=== PATIENT | male | born 1940 | race Caucasian/White ===

== ENCOUNTER → 2017-10-24 08:17 | Outpatient (CLI) | payer MEDICARE, SELFPAY ==
--- NOTE | 2017-10-24 08:40 | RAD_ITS ---
STUDY: X-RAY - RIGHT SHOULDER REASON FOR EXAM: Male, 77 years old. Pain, arthritis, no known injury TECHNIQUE: 2 view(s) of the shoulder. COMPARISON: None. FINDINGS: There is mild degenerative arthrosis of the glenohumeral articulation. There is hypertrophic osteoarthrosis of the acromioclavicular joint with inferior osseous spur formation. Normal acromion. Normal humeral head and visualized proximal humerus. The soft tissue structures are unremarkable. There is no demonstrated fracture. Normal visualized pulmonary apex. RAD/Shoulder min 2 Views IMPRESSION: Degenerative changes as detailed above. Electronically Signed: Jose Singh MD at 18:45 EDT , Service support ,
== END ==
PROVIDERS: Visit Provider Anesthesiology Pain Medicine
DX: M25.519 Pain in unspecified shoulder (principal)
CPT/HCPCS: 73030

== ENCOUNTER 2018-04-19 09:00 | Outpatient (RCR) | payer MEDICARE, SELFPAY ==
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
--- NOTE | 2018-04-19 09:38 | HP.PTDCSUM_ITS ---
HP - PT D/C Summary It has been my pleasure to treat GONZALEZ SMART under orders from Bertrand Lewis MD, for the diagnosis of CLOSED WEDGE COMPRESSION FX OF L1 W/ ROUTINE HEALING for a total of 8 visit(s). Discharge Date: 04/19/18 Please see the following information for a summary of their discharge status. - Subjective Subjective: PATIENT REPORTS HE IS A LOT BETTER. HE REPORTS HE SAW DR. SAN YESTERDAY AND DR. SAN ORDERED A HOME TENS UNIT FOR HIM. PATIENT REPORTS HE CAN WORK ABOUT 10 MINUTES ON HIS FEET THEN HE HAS TO SIT DOWN. PATIENT REPORTS HE HAS ENOUGH EXERCISES AND DOESN'T WANT ANY MORE RIGHT NOW. - Pain LOW BACK Pain Intensity (Out of 10): 5 RLE Pain Intensity (Out of 10): 5 LLE Pain Intensity (Out of 10): 5 - Overall Improvement % Improvement: 100 - Objective Objective/Function: ALL GOALS MET. PATIENT IS INDEP WITH HEP AND REPORTS HIS PAIN IS BACK TO PRE-ACCIDENT LEVEL AND HIS ACTIVITY LEVEL IS BACK TO PRE- ACCIDENT LEVEL TOO. UPON PATIENT DEMO'S IMPROVED BALANCE AND CADANCE WITH GAIT BUT STILL UNABLE TO ONLY SLS ON EACH LEG FOR A FEW SECONDS AND THIS PT STILL RECOMMENDS A WALKER FOR SAFETY BUT PATIENT REFUSES. HE IS ABLE TO TRANSFER FROM SIT TO STAND WITH ONE UE VS TWO NOW AND LUMBAR FLEX ROM HAS IMPROVED WITH ONLY MINIMAL LOSS NOW WITHOUT C/O INCREASED PAIN. HE CONTINUES TO STAND AND WALK WITH EXCESSIVE TRUNK FLEXION BUT ABLE TO CORRECT CLOSER TO NEUTRAL WITH LESS PAIN. TRISH LE STRENGTH IS 5/5 EXCEPT HIPS GRADED 4/5 AND CORE STRENGTH REMAINS POOR. PATIENT ONLY HAS MILD LOW BACK TENDERNESS NOW. - Goals Goal 1:: DECREASE C/O BACK AND TRISH LE SX'S. Goal 2:: IMPROVE STANDING, WALKING, ADL, AND SLEEP FUNCTION Goal 3:: INSTRUCT IN PROPHYLAXIS - Plan Plan: D/C. PATIENT AGREEABLE. - D/C Information If there are questions or concerns regarding this patient's physical therapy, please feel free to call me at [phone]. Thank you for the referral of this patient. Sincerely, Erica Gonzales
== END 2018-04-19 18:11 | disposition home or self-care (01) ==
LOC: PT 09:00
PROVIDERS: Referring Provider Orthopaedic Surgery Orthopaedic Surgery of the Spine; Visit Provider Orthopaedic Surgery Orthopaedic Surgery of the Spine
DX: S32.010D Wedge compression fracture of first lumbar vertebra, subsequent encounter for fracture with routine healing (principal)
CPT/HCPCS: 97035; 97110; 97162; 97530

== ENCOUNTER → 2018-10-23 09:04 | Outpatient (CLI) | payer MEDICARE, SELFPAY ==
[2014-07-09 22:16] VITALS: BMI 38.0
[2018-10-23 10:10] LABS: Amphetamine Urine VISTA NEGATIVE (<1000 ng/mL); Barbiturate Urine VISTA NEGATIVE (< 200 ng/mL); Benzodiazepine Urine VISTA NEGATIVE (< 200 ng/mL); Cocaine Urine VISTA NEGATIVE (< 300 ng/mL); Ecstacy Urine VISTA NEGATIVE (< 500 ng/mL); Methadone Urine VISTA NEGATIVE (< 300 ng/mL); PCP Urine VISTA NEGATIVE (< 25 ng/mL); THC Urine VISTA NEGATIVE (< 50 ng/mL)
[2018-10-23 10:44] LABS: Vista UDS pH Range 5
== END ==
PROVIDERS: Referring Provider Anesthesiology Pain Medicine; Visit Provider Anesthesiology Pain Medicine
DX: F11.20 Opioid dependence, uncomplicated (principal)
CPT/HCPCS: 80307

== ENCOUNTER 2019-01-02 11:14 | Inpatient (IN) | payer MEDICARE, SELFPAY ==
[2019-01-02] VITALS (23 sets, daily range): BP systolic 106–159; BP diastolic 54–138; PULSE 71–107; RESP 17–31; TEMP 36.6–37.1; O2SAT 94–100; BMI 31.4; BMI 30.7
--- NOTE | 2019-01-02 11:26 | EKG12_ITS ---
Test Reason : POST OP Blood Pressure : / mmHG Vent. Rate : 078 BPM Atrial Rate : 078 BPM P-R Int : 160 ms QRS Dur : 072 ms QT Int : 436 ms P-R-T Axes : 054 028 041 degrees QTc Int : 497 ms Sinus rhythm with Premature atrial complexes Prolonged QT Abnormal ECG When compared with ECG of 02-JAN-2019 11:41, MANUAL COMPARISON REQUIRED, DATA IS UNCONFIRMED Confirmed by JOEL DESAI ([id number]), editor publications PARESH PEREIRA ([id number]) on 01/05/2019 8:48:50 AM Referred By: Ricardo Jonas Confirmed By:JOEL DESAI
--- NOTE | 2019-01-02 11:26 | CT_ITS ---
STUDY: CT BRAIN WITHOUT CONTRAST REASON FOR EXAM: Male, 78 years old. Headache after a fall RADIATION DOSAGE (If Supplied By Facility): CTDIvol = ( 44.99 ) mGy, DLP = ( 745.49 ) mGycm TECHNIQUE: Transaxial CT imaging of the brain was performed without administration of intravenous contrast material. Individualized dose optimization techniques were used for this CT. COMPARISON: No relevant priors. FINDINGS: Normal soft tissue structures. Normal calvarium. There is mild cerebral atrophy with widening of the extra-axial spaces and ventricular dilatation. There are areas of decreased attenuation within the white matter tracts of the supratentorial brain, consistent with microvascular disease changes. Normal basal ganglia and thalami. Normal brainstem. Normal cerebellum. There is no intracranial hemorrhage. There are no findings of an acute ischemic infarction. Normal visualized paranasal sinuses. CT/Brain/Head without Contrast IMPRESSION: Chronic involutional changes of the brain. Electronically Signed: Marcos Madrid MD at 12:22 EDT , Service support ,
--- NOTE | 2019-01-02 11:27 | CT_ITS ---
STUDY: CT CERVICAL SPINE WITHOUT CONTRAST REASON FOR EXAM: Male, 78 years old. Neck pain after a fall RADIATION DOSAGE (If Supplied By Facility): CTDIvol = ( 28.74 ) mGy, DLP = ( 608.33 ) mGycm TECHNIQUE: High resolution transaxial imaging was performed without contrast material. Sagittal and coronal images were reconstructed. Individualized dose optimization techniques were used for this CT. COMPARISON: None FINDINGS: Normal craniovertebral junction. There are degenerative changes of the anterior atlantoaxial articulation. Normal odontoid process. Normal cervical lordosis. Sclerotic endplate changes noted throughout the cervical spine. There is anatomic alignment of the cervical spine. No demonstrated fracture. Intervertebral disc space narrowing noted throughout the cervical spine, most pronounced at C3-4 with there are prominent posterior spurs. No central canal stenosis but there is foraminal narrowing at this level. Normal visualized soft tissue structures. No upper rib fracture or pneumothorax. CT/Spine Cervical without Contras IMPRESSION: Multilevel degenerative changes, as described above. Findings most pronounced at C3-4. No fracture or suspicious osseous lesion Electronically Signed: Marcos Madrid MD at 12:23 EDT , Service support ,
--- NOTE | 2019-01-02 11:27 | RAD_ITS ---
STUDY: X-RAY - LEFT HAND REASON FOR EXAM: Male, 78 years old. Pain after a fall TECHNIQUE: 3 view(s) of the hand. COMPARISON: None. FINDINGS: Bones are demineralized. No demonstrated fracture. Degenerative arthrosis noted at all visualized joint spaces, most notably at the base of the thumb where there is also subluxation of the first CMC joint. No suspicious soft tissue swelling or foreign body. RAD/Hand Min 3 Views IMPRESSION: Demineralization of the osseous structures with polyarticular arthrosis, most notably at the base of the thumb. No demonstrated fracture or suspicious osseous lesion Electronically Signed: Marcos Madrid MD at 12:43 EDT , Service support ,
--- NOTE | 2019-01-02 11:27 | RAD_ITS ---
STUDY: X-RAY - LEFT RADIUS AND ULNA REASON FOR EXAM: Male, 78 years old. Pain after fall TECHNIQUE: 4 view(s) of the forearm. COMPARISON: None. FINDINGS: There is no demonstrated soft tissue swelling. Normal visualized radius. Normal visualized ulna. RAD/Forearm 2 Views IMPRESSION: Normal x-ray examination of the radius and ulna. Electronically Signed: Marcos Madrid MD at 12:44 EDT , Service support ,
[2019-01-02 11:38] LABS: Absolute Neutrophil Count 21.3 X10^3/uL (2.0-7.7); Basophil# 0.04 X10^3/uL; Basophil% 0.2 % (0-1); Eosinophil# 0.06 X10^3/uL; Eosinophils% 0.3 % (0-5); Hematocrit 42.4 % (40-54); Hemoglobin 14.6 g/dL (13.0-16.5); Lymphocyte % 3.8 % (19-41); Mean Corp Hgb Conc 34.4 g/dL (32-36); Mean Corpuscular Hgb 33.6 pg (27.0-32.0); Mean Corpuscular Volume 97.5 fL (80-94); Mean Platelet Vol. 10.9 fl (6.2-12.0); Monocyte# 1.19 X10^3/uL; NRBC Flagged by Analyzer 0 % (0-5); Neutrophil % 89.4 % (47-70); POSITIVE DIFFERENTIAL YES; Platelet Count 252 K/mm3 (150-450); RBC Distribution Width CV 11.6 % (11.6-14.6); RBC Distribution Width SD 42.1 fl (35.1-43.9); Red Blood Count 4.35 M/mm3 (4.6-6.2); White Blood Count 23.8 K/mm3 (4.4-11.0)
[2019-01-02] MEDS: Ondansetron 4 MG/2 ML Vial IV (11:39)
[2019-01-02] MEDS: 0.9% Normal Saline 1,000 ML 1000 ML IV (11:39)
[2019-01-02] MEDS: Morphine 2 MG/ML Syringe IV (11:39)
[2019-01-02 11:43] LABS: Differential Indicated SCAN CRITERIA MET
[2019-01-02 11:53] LABS: ALB/GLOB Ratio 0.6 RATIO (0.9-2.4); AST(SGOT) 642 U/L (15-37); Alanine Aminotransfer ALT/SGPT 108 U/L (16-61); Albumin, Serum 2.7 g/dL (3.2-5.0); Alkaline Phosphatase 101 U/L (45-117); Anion Gap 16 (5-15); BUN 32 mg/dL (7-18); BUN/Creat Ratio 12.1 RATIO (10-20); Calcium,Total 8.9 mg/dL (8.5-10.1); Chloride 103 mmol/L (98-107); Creatinine, Serum 2.65 mg/dL (0.70-1.30); EST Glomerular Filtration Rate 25 mL/min (>60); Est Glom Filt Rate - Afr Amer 30 mL/min (>60); Estimated Creatinine Clearance 25.96 ml/min; Globulin 4.5 g/dL (2.2-4.2); Glucose 164 mg/dL (74-106); Potassium 4.5 mmol/L (3.5-5.1); Protein, Total 7.2 g/dL (6.4-8.2); Sodium Level 137 mmol/L (136-145)
--- NOTE | 2019-01-02 12:05 | RAD_ITS ---
STUDY: X-RAY CHEST REASON FOR EXAM: Male, 78 years old. Chest pain and cough after a fall TECHNIQUE: Single AP portable view of the chest. COMPARISON: 07/10/14 FINDINGS: EKG leads overlie the chest There are interstitial fibrotic changes of the lungs. There is no demonstrated pleural abnormality. Normal size heart. Normal mediastinum and cl. Normal visualized pulmonary arteries. Normal visualized aortic arch and descending thoracic aorta. There are diffuse degenerative changes of the visualized thoracic spine. Normal visualized ribs, clavicles, and shoulders. There is no demonstrated abnormality of the visualized soft tissue structures of the upper abdomen. RAD/Chest 1 View (Portable) IMPRESSION: Degenerative changes, as described above. No demonstrated acute cardiopulmonary process. No interval change Electronically Signed: Marcos Madrid MD at 12:44 EDT , Service support ,
[2019-01-02 12:35] LABS: Lactic Acid 5.3 mmol/L (0.4-2.0)
[2019-01-02] MEDS: Diphth,Pertuss(Acell),Tet Vac 0.5 ML Vial IM (12:37)
[2019-01-02] MEDS: Morphine 4 MG/ML Syringe IV ×4 (12:43→21:41)
[2019-01-02 13:00] LABS: CPK Total, Creatine Kinase 22797 U/L (39-308)
--- NOTE | 2019-01-02 13:07 | ED.VISSUMM ---
- ER Visit Summary Date of Service: 01/02/19 Chief Complaint: [Fall History of Present Illness: The patient is a 78 M [presents to the emergency department after sustaining a fall last evening around 8:30 PM. Patient states that he was turning over a mattress when he fell between the bed and the dresser and no wall. Patient could not get up and laid there for over 12 hours. Patient's who does not live with him came over when she did not hear from him this morning and found him. Patient complaining of pain in his neck and his left arm. Is unsure of his last tetanus. Denies any chest pain or abdominal pain. Patient denies drinking alcohol last night although his does not believe this. I am told by the the patient has history of alcohol abuse. Patient also with history of hypertension, high cholesterol, hypothyroidism, and osteoarthritis.] Physical Examination: [HEENT-PERRLA, EOMI. Cranial nerves II through XII grossly intact. TMs clear. Mucous membranes moist. No adenopathy. She has mild diffuse C-spine tenderness to palpation. No bony step-offs noted. Cardiovascular-regular rate and rhythm without murmur or ectopy Lungs-clear to auscultation, chest wall stable without crepitus or subcu emphysema Abdomen-normoactive bowel sounds, soft, nontender, no rebound or rigidity, no peritoneal signs. Extremities-intact ?4, normal range of motion, normal pulses. Left arm-patient has diffuse edema from the elbow down to the hand. Patient has multiple skin abrasions. Patient has multiple blisters. Cap refill is 3 seconds in the hand. Patient has decreased ability to the move the wrist and digits secondary to edema and pain. Patient has normal ulnar and radial pulses. Forearm compartments are not tight.] Test Results: [CT scan of the brain without contrast showed nothing acute. CT scan of the C-spine showed degenerative changes but no fractures. X-rays of left forearm and left hand showed no fractures. Chest x-ray showed nothing acute. CBC with differential to 23.8, hemoglobin 14.6, hematocrit 42, platelets 252. Chemistries unremarkable. The O2 was 16. BUN was 22 and creatinine 2.65. Troponin was 0.058. CPK was 22,797.] Emergency Department Course and Treatment: [Was treated with morphine and Zofran. Patient was given a liter normal same fluid bolus.] Receive tetanus booster. Treatment Plan: [Admit for IV hydration and pain management.] Disposition: [Admit] Impression: [Mechanical fall Rhabdomyolysis Acute kidney injury Left forearm skin tears] This note was generated with 7write dictation software. It may contain incorrect words, spelling, and punctuation that were not noted in review of the chart prior to signing ED Disposition - Plan for ED Patient: Referrals: [facility] Doctor,Out of [Primary Care Provider] -
--- NOTE | 2019-01-02 13:47 | PCM.HP.STD ---
Problem List (1) SAVANNAH (acute kidney injury) Status: Acute (2) Rhabdomyolysis Status: Acute (3) Fall Status: Acute (4) Esophageal stricture Status: Chronic (5) GERD (gastroesophageal reflux disease) Status: Chronic (6) Hyperlipidemia Status: Chronic (7) Hypertension Status: Chronic (8) Hypothyroid Status: Chronic (9) Osteoarthritis Status: Chronic History of Present Illness Date of Admission: 01/02/19 Chief Complaint: Fall The patient is a 78 year old M who was brought to the emergency department by the following a fall. Patient states he fell in his bedroom and was stuck in between the wall and his bed. He laid down for over 12 hours. Patient and apparently lives in separate rooms and could not find patient went to the room and found patient between the bed and the wall. The EMS squad was called and patient was brought to the emergency department. Patient apparently did develop significant swelling involving the left upper extremities. In the ED patient was found to have acute kidney injury with rhabdomyolysis. He was also found to have elevated lactic acid level and leukocytosis without any obvious source of infection. Past Medical History Past Medical History (Chronic Problems): Chronic Problems Hypertension (Chronic) Esophageal stricture (Chronic) GERD (gastroesophageal reflux disease) (Chronic) Osteoarthritis (Chronic) Hypothyroid (Chronic) Hyperlipidemia (Chronic) Allergies rosuvastatin calcium [From Crestor] Allergy (Verified 01/02/19 11:14) Other niacin [From Niaspan Extended-Release] Adverse Reaction (Verified 01/02/19 11:14) Unknown Home Medications: Ambulatory Orders Medication Instructions Recorded Cyanocobalamin (Vitamin B-12) 1,000 mcg PO DAILY 01/02/19 [Vitamin B-12] Gabapentin [Neurontin] 100 mg PO QHS 01/02/19 Levothyroxine Sodium 125 mcg PO DAILY 01/02/19 Lisinopril 40 mg PO DAILY 01/02/19 Loratadine 10 mg PO DAILY 01/02/19 Omeprazole 40 mg PO DAILY 01/02/19 Surgical History: - - Cholecystectomy, Esophageal stricture dilation/foreign body removal. Smoking Status: Never smoker - *Family History Maternal History Items: Diabetes Paternal History Items: No pertinent history Review of Systems Constitutional: Reports: Weakness HEENT: Denies: Head Aches, Sinus Congestion, Sinus Drainage Cardiovascular: Denies: Chest Pain, Orthopnea, Palpitations, Paroxysmal Noc. Dyspnea Respiratory: Denies: Cough, Shortness of breath at rest, Shortness of breath upon exertion, Sputum production Gastrointestinal: Denies: Abdominal Pain, Hematemesis, Hematochezia, Nausea, Melena, Vomiting Musculoskeletal: Reports: Arm Pain, Joint stiffness Neurological: Reports: Numbness Psychiatric: Denies: Homicidal Ideations, Suicidal Ideations Hematologic/ Lymphatic: Denies: Easy Bruising, Easy Bleeding VTE Information - Inpt Only VTE Present on Admission: No VTE Mechan Device Prophylaxis: Knee High JAREK Hose VTE Pharm Prophylaxis ordered?: Yes Patient Problems: Active and Suspected Problems SAVANNAH (acute kidney injury) (Acute) Rhabdomyolysis (Acute) Fall (Acute) Objective: GENERAL: cooperative HEENT: Atraumatic; EYES; Anicteric, Normal Conjunctiva NECK; supple, normal thyroid, RESPIRATORY: Diminished to auscultation CARDIOVASCULAR: Regular S1 S2, GI: soft, non-tender, normoactive bowel sounds, : No Renal angle tenderness; EXTREMITIES: Left upper extremity swelling more pronounced at the hand with extensive blistering and excoriations MUSCULOSKELETAL: no muscle waisting NEURO: Awake; no lateralizing signs. SKIN: As described above PSYCH; Normal affect - Physical Exam Vital Signs Temp Pulse Resp BP Pulse Ox 98.2 F 107 H 20 H 127/72 H 98 01/02/19 11:16 01/02/19 13:44 01/02/19 13:44 01/02/19 13:44 01/02/19 13:44 Oxygen Delivery Method Room Air Weight: 108.2 kg Body Mass Index (BMI) 31.4 Laboratory Tests Past 24 Hrs 01/02/19 01/02/19 01/02/19 11:25 11:25 11:25 WBC 23.8 H RBC 4.35 L Hgb 14.6 Hct 42.4 MCV 97.5 H MCH 33.6 H MCHC 34.4 RDW Std Deviation 42.1 RDW Coeff of Carmita 11.6 Plt Count 252 MPV 10.9 Immature Gran % (Auto) 1.300 H Neut % (Auto) 89.4 H Lymph % (Auto) 3.8 L [place] % (Auto) 5.0 Eos % (Auto) 0.3 Baso % (Auto) 0.2 Absolute Neuts (auto) 21.3 H Absolute Lymphs (auto) 0.90 Nucleated RBC % 0 Sodium 137 Potassium 4.5 Chloride 103 Carbon Dioxide 18.0 L Anion Gap 16 H BUN 32 H Creatinine 2.65 H Estim Creat Clear Calc 25.96 Est GFR (MDRD) Af Amer 30 L Est GFR (MDRD) Non-Af 25 L BUN/Creatinine Ratio 12.1 Glucose 164 H Lactic Acid 5.3 H* Calcium 8.9 Total Bilirubin 1.30 H AST 642 H ALT 108 H Alkaline Phosphatase 101 Total Creatine Kinase Troponin I 0.058 H Total Protein 7.2 Albumin 2.7 L Globulin 4.5 H Albumin/Globulin Ratio 0.6 L Ethyl Alcohol 01/02/19 01/02/19 11:25 11:45 WBC RBC Hgb Hct MCV MCH MCHC RDW Std Deviation RDW Coeff of Carmita Plt Count MPV Immature Gran % (Auto) Neut % (Auto) Lymph % (Auto) [place] % (Auto) Eos % (Auto) Baso % (Auto) Absolute Neuts (auto) Absolute Lymphs (auto) Nucleated RBC % Sodium Potassium Chloride Carbon Dioxide Anion Gap BUN Creatinine Estim Creat Clear Calc Est GFR (MDRD) Af Amer Est GFR (MDRD) Non-Af BUN/Creatinine Ratio Glucose Lactic Acid Calcium Total Bilirubin AST ALT Alkaline Phosphatase Total Creatine Kinase 68056 H Troponin I Total Protein Albumin Globulin Albumin/Globulin Ratio Ethyl Alcohol 8.0 Assessment/Plan All Active Problems SAVANNAH (acute kidney injury) (Acute) Rhabdomyolysis (Acute) Fall (Acute) Patient is a 78-year-old gentleman admitted with a fall. Subsequently found to have rhabdomyolysis with acute kidney injury 1. Acute mechanical fall with significantly left upper extremity swelling. With possible concerns for possible compartment syndrome patient has been monitored to the regular nursing floor with consultation placed to orthopedic surgery on-call, attempts have been made orthopedic surgeon commanding officer traffic division cortex through the premix operator concentrate as well as to the office number awaiting response 2. Acute rhabdomyolysis following prolonged episodes of immobilization admitted to a monitored bed started on hydration with monitoring of CPK levels 3. Acute kidney injury secondary to 2 on fluids with monitoring of electrolyte 3. Elevated troponin do suspect probable demand ischemia from patient acute kidney injury 3. Leukocytosis with elevated lactic acid level patient currently does not have any evidence of infection 6. Hypertension patient is on lisinopril which was held in view of his impaired kidney function 7. History of occasional alcohol use we will place patient on DT precautions 8. Hypothyroidism-patient is on levothyroxine home dose continued 9. GERD on PPI 10. Obesity with BMI of 31.5 11. DVT prophylaxis SC heparin Code Visit Inpatient E&M: 53790 Init Hosp L3
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
[2019-01-02] MEDS: 0.9% Normal Saline 1,000 ML 150 ML IV ×2 (15:04→18:21)
--- NOTE | 2019-01-02 15:13 | NURSING ---
[address] barber on phone and updated. circ check + fingernails and delayed 5sec to fingers. numbness from marked area lt upper arm down. measurements done by adria mcneil rn. awaiting to come assess. compartment box from er at bedside.
--- NOTE | 2019-01-02 15:24 | NURSING ---
wound photo: left arm
--- NOTE | 2019-01-02 15:25 | NURSING ---
wound photo: left arm/left lateral chest
--- NOTE | 2019-01-02 15:25 | NURSING ---
wound photo: right elbow
[2019-01-02 15:31] LABS: Reflex Lactate? Y
--- NOTE | 2019-01-02 15:32 | NURSING ---
left upper arm circumference where marked is 37 cm currently.
--- NOTE | 2019-01-02 16:00 | NURSING ---
DR DEE IN AT BEDSIDE TO ASSESS. JUNIOR NEEDLE COMFIRMED COMPRESSION SYNDROME AND PT MADE READY FOR OR. AT BEDSIDE. LT ARM BANDAGED LIGHTLY TO COVER OPEN AREAS. PT ANXIOUS. PT TO OR WITH CHART AND REPORT CALLED. RN AWARE THAT MINIMAL OR PREP DONE AND THAT CONSENT NOT FILLED OUT. ACCOMPANYING PT TO PACU
--- NOTE | 2019-01-02 17:10 | EKG12_ITS ---
Test Reason : Blood Pressure : / mmHG Vent. Rate : 087 BPM Atrial Rate : 087 BPM P-R Int : 156 ms QRS Dur : 070 ms QT Int : 382 ms P-R-T Axes : 041 013 032 degrees QTc Int : 459 ms Sinus rhythm with Premature atrial complexes Nonspecific ST abnormality Abnormal ECG Confirmed by AIDA SMITH, RASHIDA ([id number]), desk editor PARESH PEREIRA ([id number]) on 01/04/2019 1:30:27 PM Referred By: Ricardo Jonas Confirmed By:RASHIDA PARRA MD
--- NOTE | 2019-01-02 17:19 | PCM.OPRPT ---
Report of Operation Date of Procedure: 01/02/19 Description of Surgical Findings:: Preoperative diagnosis: left forearm volar compartment syndrome Postoperative diagnosis: same Procedure: Left forearm volar fasciotomy Anesthesia: General EBL: 20 cc Complications: None Condition: Stable to PACU Indication for procedure: This is a 78-year-old old male heavy drinker who was attempting to move a mattress at 8:30 PM on 01/01/19 the mattress knocked him over and he fell onto his left upper extremity being caught underneath him he was stuck this way for 12 hours only to be found and brought to the emergency room where he was found to be acidotic with rhabdomyolysis. I was consulted secondary to swelling and inability to feel or move his left wrist or fingers. Upon examination patient had no sensation below the elbow no pain with passive finger range of motion delayed capillary refill and faint pulse compartments were evaluated with [place] needle and the only compartment with elevated pressures was the volar compartment around flexor tendons in the proximal forearm, the extensor compartment as well as thenar and hyperthenar muscle masses were soft and supple. The triceps and biceps were soft and supple Chichi needle testing showed pressure of 65 in this compartment. Discussed with patient and condition of compartment syndrome and late findings of motor and sensory loss without pain indicative of likely permanent injury however with continued elevated pressures recommended fasciotomy to minimize further damage. Risk benefits and alternatives were reviewed including risk of bleeding infection nerve, artery, bone, tissue damage, blood clot need for further surgery and continued pain. Procedure: Patient was met operative extremity was marked patient was brought urgently to the operating room. He was prepped and draped in the usual sterile fashion a timeout was called to ensure the proper patient and extremity are being contemplated. No tourniquet was used during the procedure. A extended volar Michael type of incision was made through the skin electrocautery was used to maintain hemostasis and the forearm fascia was incised the FCR was mobilized and the deep fascia was incised. There was pressure over the proximal flexor mass which was released with a fasciotomy however distally compartments did not seem tight. It was not felt that extension into carpal tunnel was necessary. Radial artery was found and pulses present but faint fascia over individual muscle compartments was also released the wound was thoroughly irrigated was closed distal distally with 3-0 nylon however was too swollen proximally to close primarily so vessel loop was used in a crossed stitch pattern with angel. Xeroform was applied. Blisters were released and covered with Xeroform light dressing with 4 x 4's ABD light web roll and an Max wrap were applied. Patient will have elevation and ice to the forearm with encouragement of finger range of motion. He will need a second procedure for attempted closure. If we cannot closed we may need wound VAC and skin grafting. Will start on Ancef every 8 hours and transferred to ICU discussed alcohol use with admitting physician for DT prevention.
[2019-01-02] MEDS: 0.9% NaCl Peripheral Flush Adult/Peds IV ×2 (18:24→21:42)
[2019-01-02 18:30] LABS: Bedside Glucose 141 mg/dL (70-110)
[2019-01-02] MEDS: Cefazolin 1 GM/50 ML BAG IV (21:42)
[2019-01-02] MEDS: LORazepam 1 MG Tablet PO (21:49)
[2019-01-02] MEDS: Heparin Injection (Vial) 5,000 UNIT/ML VIAL 5000 UNIT SC (21:49)
[2019-01-03] VITALS (19 sets, daily range): BP systolic 117–136; BP diastolic 55–82; PULSE 68–115; RESP 13–19; TEMP 36.6–38.2; O2SAT 93–97
[2019-01-03] MEDS: Lactated Ringers 1,000 ML 999 ML IV (00:53)
[2019-01-03] MEDS: Morphine 4 MG/ML Syringe IV ×2 (00:59→06:01)
[2019-01-03] MEDS: 0.9% NaCl Peripheral Flush Adult/Peds IV ×4 (00:59→11:36)
[2019-01-03] MEDS: LORazepam 1 MG Tablet PO ×3 (00:59→20:53)
[2019-01-03] MEDS: CHLORHEXIDINE GLUC 2% CLOTH 1 EACH TOWELETTE TOPICAL (01:00)
[2019-01-03] MEDS: Lactated Ringers 1,000 ML 150 ML IV ×3 (01:51→19:07)
[2019-01-03 04:43] LABS: Absolute Lymphocyte Count 0.68 X10^3/uL (0.83-4.51); Absolute Neutrophil Count 16.3 X10^3/uL (2.0-7.7); Basophil# 0.04 X10^3/uL; Basophil% 0.2 % (0-1); Eosinophil# 0.16 X10^3/uL; Eosinophils% 0.8 % (0-5); Hematocrit 45.1 % (40-54); Hemoglobin 15.2 g/dL (13.0-16.5); Lymphocyte # 0.68 X10^3/ul (4.0); Lymphocyte % 3.6 % (19-41); Mean Corp Hgb Conc 33.7 g/dL (32-36); Mean Corpuscular Hgb 34.5 pg (27.0-32.0); Mean Corpuscular Volume 102.3 fL (80-94); Monocyte# 1.67 X10^3/uL; Monocyte% 8.8 % (0-10); NRBC Flagged by Analyzer 0 % (0-5); Neutrophil # 16.33 X10^3/uL (2.7-7.7); Neutrophil % 86.2 % (47-70); POSITIVE DIFFERENTIAL YES; POSITIVE MORPHOLOGY YES; Platelet Count 204 K/mm3 (150-450); RBC Distribution Width CV 11.9 % (11.6-14.6); RBC Distribution Width SD 44.7 fl (35.1-43.9); Red Blood Count 4.41 M/mm3 (4.6-6.2)
[2019-01-03 04:50] LABS: Differential Indicated SCAN CRITERIA MET
[2019-01-03 04:59] LABS: Anion Gap 12 (5-15); BUN 44 mg/dL (7-18); BUN/Creat Ratio 13.4 RATIO (10-20); Calcium,Total 7.9 mg/dL (8.5-10.1); Chloride 108 mmol/L (98-107); Creatinine, Serum 3.29 mg/dL (0.70-1.30); EST Glomerular Filtration Rate 19 mL/min (>60); Est Glom Filt Rate - Afr Amer 24 mL/min (>60); Estimated Creatinine Clearance 20.91 ml/min; Glucose 141 mg/dL (74-106); Potassium 4.7 mmol/L (3.5-5.1); Sodium Level 141 mmol/L (136-145)
[2019-01-03 05:42] LABS: Differential Comment SCANNED
[2019-01-03 05:44] LABS: CPK Total, Creatine Kinase 19552 U/L (39-308)
[2019-01-03] MEDS: Cefazolin 1 GM/50 ML BAG IV (05:50)
[2019-01-03] MEDS: Levothyroxine 125 MCG Tablet PO (05:50)
--- NOTE | 2019-01-03 06:57 | PCM.CON.CC ---
Reason for Consult Date of Consultation: 01/03/19 Reason for Consultation: ICU management History of Present Illness: The patient is a 78-year-old male, with a history as outlined below, who presented to the emergency department on the afternoon of January 02 after sustaining a fall which left him immobile for approximately 12 hours. The patient reportedly had swelling and inability to feel or move his left wrist or fingers. While the patient does have reported history of alcohol dependency, he reported to me that he only drinks approximately 3 times per day, at which time, he consumes a combination of beer and hard liquor. He denies ever having experienced alcohol withdrawal symptoms. He is a non-smoker. On presentation to the emergency department, the patient was noted to be afebrile and hemodynamically stable. He was documented to be saturating 99% on room air. Laboratory evaluation revealed an elevated white blood cell count to 24,000. Chemistry profile was notable for a bicarbonate of 18, anion gap of 16 and creatinine of 2.65. Lactate was elevated to 5.3. AST and ALT were increased to 642 and 108, respectively. Total CK was increased to 23,000. Troponin was elevated to 0.058. Head CT revealed chronic involutional changes of the brain. Cervical spine CT revealed degenerative changes without acute fracture or dislocation. Plain film chest x-ray revealed no acute cardiopulmonary process. The patient was subsequently evaluated by orthopedic surgery, who was concerned about left forearm compartment syndrome. The patient was subsequently taken to the OR and underwent a left forearm fasciotomy. The patient was started on continuous supplemental IV fluid hydration and was admitted to the medical intensive care unit postoperatively. This morning, the patient denies any chest pain or shortness of breath. His only complaint is for that of left upper extremity pain and low back pain, which is chronic per his account. Past Medical History Past Medical History (Chronic Problems): Chronic Problems Hypertension (Chronic) Esophageal stricture (Chronic) GERD (gastroesophageal reflux disease) (Chronic) Osteoarthritis (Chronic) Hypothyroid (Chronic) Hyperlipidemia (Chronic) Allergies rosuvastatin calcium [From Crestor] Allergy (Verified 01/02/19 14:42) Unknown pt unsure niacin [From Niaspan Extended-Release] Adverse Reaction (Verified 01/02/19 14:42) Unknown pt unsure Home Medications: Ambulatory Orders Medication Instructions Recorded Cyanocobalamin (Vitamin B-12) 1,000 mcg PO DAILY 01/02/19 [Vitamin B-12] Gabapentin [Neurontin] 100 mg PO QHS 01/02/19 Levothyroxine Sodium 125 mcg PO DAILY 01/02/19 Lisinopril 40 mg PO DAILY 01/02/19 Loratadine 10 mg PO DAILY 01/02/19 Omeprazole 40 mg PO DAILY 01/02/19 Surgical History: - - Cholecystectomy, Esophageal stricture dilation/foreign body removal. Smoking Status: Never smoker - *Family History Maternal History Items: Diabetes Paternal History Items: No pertinent history Review of Systems Constitutional: Denies: Chills, Fever Eyes: Denies: Blurred vision, Double vision HEENT: Denies: Head Aches, Sinus Congestion, Sinus Drainage Cardiovascular: Denies: Chest Pain, Palpitations Respiratory: Denies: Cough, Shortness of breath at rest, Sputum production Gastrointestinal: Denies: Abdominal Pain, Nausea, Vomiting Genitourinary: Reports: - - Decreased urine output Musculoskeletal: Reports: Arm Pain, Back Pain Skin: Denies: Rash, Wounds Neurological: Denies: Numbness, Tingling, Focal weakness Psychiatric: Denies: Anxiety, Depression, Homicidal Ideations, Suicidal Ideations Hematologic/ Lymphatic: Denies: Easy Bruising, Easy Bleeding Patient Problems: Active and Suspected Problems SAVANNAH (acute kidney injury) (Acute) Rhabdomyolysis (Acute) Fall (Acute) Objective: The patient's most recent lab work, culture data and imaging studies have all been personally reviewed. - Physical Exam General: Alert, Cooperative, No apparent distress HEENT: Atraumatic, PERRLA, Normocephalic Oral: Dry Mucosa, - - Edentulous Neck: Supple, No Nodes, Trachea Midline Lungs: Normal air movement, No rhonchi, No wheeze, No rales Cardiovascular: Normal S1, Normal S2, Irregular Rate, Tachycardic Abdomen: Bowel Sounds Present, Soft, Non Tender Extremities: No clubbing, No cyanosis, No edema Skin: - - Distal left upper extremity is wrapped. Musculoskeletal: No Muscle Wasting Lymphatic: No Cervical, Supraclavicular, or Inguinal Adenopathy Neurological: Cranial nerves II-XII grossly intact, Neuro grossly intact Psych/Mental Status: Normal Affect, Appropriate Vital Signs Temp Pulse Resp BP Pulse Ox 99.3 F H 97 14 124/67 H 96 01/03/19 06:00 01/03/19 06:00 01/03/19 06:00 01/03/19 06:00 01/03/19 06:00 Oxygen Delivery Method Room Air Weight: 241 lb 13.553 oz Body Mass Index (BMI) 30.7 Intake and Output for Last 24 Hours 01/01/19 01/02/19 01/03/19 23:59 23:59 23:59 Intake Total 1200 / 2223 2744 / 2744 Output Total 50 / 50 Balance 1200 / 2223 2694 / 2694 Laboratory Tests Past 24 Hrs 01/02/19 01/02/19 01/02/19 11:25 11:25 11:25 WBC 23.8 H RBC 4.35 L Hgb 14.6 Hct 42.4 MCV 97.5 H MCH 33.6 H MCHC 34.4 RDW Std Deviation 42.1 RDW Coeff of Carmita 11.6 Plt Count 252 MPV 10.9 Immature Gran % (Auto) 1.300 H Neut % (Auto) 89.4 H Lymph % (Auto) 3.8 L [place] % (Auto) 5.0 Eos % (Auto) 0.3 Baso % (Auto) 0.2 Absolute Neuts (auto) 21.3 H Absolute Lymphs (auto) 0.90 Nucleated RBC % 0 Differential Comment Diff Path Review Sodium 137 Potassium 4.5 Chloride 103 Carbon Dioxide 18.0 L Anion Gap 16 H BUN 32 H Creatinine 2.65 H Estim Creat Clear Calc 25.96 Est GFR (MDRD) Af Amer 30 L Est GFR (MDRD) Non-Af 25 L BUN/Creatinine Ratio 12.1 Glucose 164 H Lactic Acid 5.3 H* Calcium 8.9 Total Bilirubin 1.30 H AST 642 H ALT 108 H Alkaline Phosphatase 101 Total Creatine Kinase Troponin I 0.058 H Total Protein 7.2 Albumin 2.7 L Globulin 4.5 H Albumin/Globulin Ratio 0.6 L Ethyl Alcohol 01/02/19 01/02/19 01/02/19 11:25 11:45 14:43 WBC RBC Hgb Hct MCV MCH MCHC RDW Std Deviation RDW Coeff of Cramita Plt Count MPV Immature Gran % (Auto) Neut % (Auto) Lymph % (Auto) [place] % (Auto) Eos % (Auto) Baso % (Auto) Absolute Neuts (auto) Absolute Lymphs (auto) Nucleated RBC % Differential Comment Diff Path Review Sodium Potassium Chloride Carbon Dioxide Anion Gap BUN Creatinine Estim Creat Clear Calc Est GFR (MDRD) Af Amer Est GFR (MDRD) Non-Af BUN/Creatinine Ratio Glucose Lactic Acid Calcium Total Bilirubin AST ALT Alkaline Phosphatase Total Creatine Kinase 11170 H Troponin I 0.075 H Total Protein Albumin Globulin Albumin/Globulin Ratio Ethyl Alcohol 8.0 01/02/19 01/03/19 01/03/19 17:20 04:35 04:35 WBC 19.0 H RBC 4.41 L Hgb 15.2 Hct 45.1 MCV 102.3 H MCH 34.5 H MCHC 33.7 RDW Std Deviation 44.7 H RDW Coeff of Carmita 11.9 Plt Count 204 MPV 11.0 Immature Gran % (Auto) 0.400 Neut % (Auto) 86.2 H Lymph % (Auto) 3.6 L [place] % (Auto) 8.8 Eos % (Auto) 0.8 Baso % (Auto) 0.2 Absolute Neuts (auto) 16.3 H Absolute Lymphs (auto) 0.68 L Nucleated RBC % 0 Differential Comment SCANNED Diff Path Review May foll Sodium 141 Potassium 4.7 Chloride 108 H Carbon Dioxide 21.0 Anion Gap 12 BUN 44 H Creatinine 3.29 H Estim Creat Clear Calc 20.91 Est GFR (MDRD) Af Amer 24 L Est GFR (MDRD) Non-Af 19 L BUN/Creatinine Ratio 13.4 Glucose 141 H Lactic Acid Calcium 7.9 L Total Bilirubin AST ALT Alkaline Phosphatase Total Creatine Kinase Troponin I 0.101 H Total Protein Albumin Globulin Albumin/Globulin Ratio Ethyl Alcohol 01/03/19 04:35 WBC RBC Hgb Hct MCV MCH MCHC RDW Std Deviation RDW Coeff of Carmita Plt Count MPV Immature Gran % (Auto) Neut % (Auto) Lymph % (Auto) [place] % (Auto) Eos % (Auto) Baso % (Auto) Absolute Neuts (auto) Absolute Lymphs (auto) Nucleated RBC % Differential Comment Diff Path Review Sodium Potassium Chloride Carbon Dioxide Anion Gap BUN Creatinine Estim Creat Clear Calc Est GFR (MDRD) Af Amer Est GFR (MDRD) Non-Af BUN/Creatinine Ratio Glucose Lactic Acid Calcium Total Bilirubin AST ALT Alkaline Phosphatase Total Creatine Kinase 47138 H Troponin I Total Protein Albumin Globulin Albumin/Globulin Ratio Ethyl Alcohol POC Glucose 01/02/19 18:26 POC Glucose 141 H Clinical Impression(s) from Imaging Studies Brain CT 01/02/19 11:26 IMPRESSION: Chronic involutional changes of the brain. Electronically Signed: Marcos Madrid MD at 12:22 EDT , Service support , Cervical Spine CT 01/02/19 11:27 IMPRESSION: Multilevel degenerative changes, as described above. Findings most pronounced at C3-4. No fracture or suspicious osseous lesion Electronically Signed: Marcos Madrid MD at 12:23 EDT , Service support , Forearm X-Ray 01/02/19 11:27 IMPRESSION: Normal x-ray examination of the radius and ulna. Electronically Signed: Marcos Madrid MD at 12:44 EDT , Service support , Hand X-Ray 01/02/19 11:27 IMPRESSION: Demineralization of the osseous structures with polyarticular arthrosis, most notably at the base of the thumb. No demonstrated fracture or suspicious osseous lesion Electronically Signed: Marcos Madrid MD at 12:43 EDT , Service support , Chest X-Ray 01/02/19 12:05 IMPRESSION: Degenerative changes, as described above. No demonstrated acute cardiopulmonary process. No interval change Electronically Signed: Marcos Madrid MD at 12:44 EDT , Service support , Assessment/Plan Active and Suspected Problems SAVANNAH (acute kidney injury) (Acute) Rhabdomyolysis (Acute) Fall (Acute) RECOMMENDATIONS: 1. Recheck AST, ALT and lactic acid. 2. Hold acetaminophen given hepatic dysfunction. 3. Continue supplemental IV fluid hydration with lactated Ringer's. 4. Await nephrology evaluation. 5. Discontinue morphine, given renal insufficiency. 6. Obtain blood and urine cultures. Continue broad antimicrobial coverage for now. 7. Obtain echocardiogram 8. Check MRSA screen IMPRESSIONS: 1. Distal left upper extremity compartment syndrome following mechanical fall, now POD #1 s/p fasciotomy The patient was taken to the OR on the evening of January 02 and underwent fasciotomy. For now, we will continue local wound care and pain control regimen. Defer further operative management to orthopedic surgery. 2. Acute kidney injury/rhabdomyolysis Awaiting nephrology evaluation. Continue supplemental IV fluid hydration. Trend CK level. 3. Troponin elevation Concerned that this is related to demand ischemia in the setting of the patient's acute presentation. Trend troponins. Obtain echocardiogram. 4. Leukocytosis/lactic acidemia Although sepsis was not initially considered on presentation to the hospital, the patient did develop a low-grade fever this morning. Therefore, I agree with continuing broad-spectrum antimicrobial coverage for now. We will place orders for blood and urine cultures. Initial plain film chest x-ray was largely unremarkable for the presence of a pulmonary infectious process. 5. History of alcohol dependency/neuropathy/hypothyroidism/hypertension/GERD Complicates care, management, recovery and prognosis. Continue to monitor for signs of alcohol withdrawal. Continue thiamine and folate repletion. Hold home DEEPTI inhibitor due to acute renal insufficiency. This note was generated with [employer] dictation software. It may contain incorrect words, spelling, and punctuation that were not noted in checking the note before signing. Code Visit Inpatient E&M: 50044 Init Hosp L3
--- NOTE | 2019-01-03 07:14 | PCM.PN.HOSP ---
Patient Problems: Active and Suspected Problems SAVANNAH (acute kidney injury) (Acute) Rhabdomyolysis (Acute) Fall (Acute) Subjective: Patient is a 78-year-old gentleman who was admitted following a crush injury between his bed and wall with prolonged immobilization of 12 hours duration brought to the emergency department patient was found to have acute rhabdomyolysis with acute kidney injury. He was subsequently determined to have compartment syndrome consult was placed to orthopedic surgery seen by Dr. Archer who did take patient to OR for fasciotomy Objective: GENERAL: cooperative HEENT: Atraumatic; EYES; Anicteric, Normal Conjunctiva NECK; supple, normal thyroid, RESPIRATORY: Diminished to auscultation CARDIOVASCULAR: Regular S1 S2, GI: soft, non-tender, normoactive bowel sounds, : No Renal angle tenderness; EXTREMITIES: Left upper extremity surgical dressing MUSCULOSKELETAL: no muscle waisting NEURO: Awake; no lateralizing signs. SKIN: As described above PSYCH; Normal affect Vitals/I&O's: Vital Signs Temp Pulse Resp BP Pulse Ox 99.3 F H 97 14 124/67 H 96 01/03/19 06:00 01/03/19 06:00 01/03/19 06:00 01/03/19 06:00 01/03/19 06:00 Oxygen Delivery Method Room Air Weight: 109.7 kg Body Mass Index (BMI) 30.7 Intake and Output for Last 24 Hours 01/01/19 01/02/19 01/03/19 23:59 23:59 23:59 Intake Total 1200 / 2223 2744 / 2744 Output Total 50 / 50 Balance 1200 / 2223 2694 / 2694 Laboratory Results 01/02/19 11:25: WBC 23.8 H, RBC 4.35 L, Hgb 14.6, Hct 42.4, MCV 97.5 H, MCH 33.6 H, MCHC 34.4, RDW Std Deviation 42.1, RDW Coeff of Carmita 11.6, Plt Count 252, MPV 10.9, Immature Gran % (Auto) 1.300 H, Neut % (Auto) 89.4 H, Lymph % (Auto) 3.8 L, [place] % (Auto) 5.0, Eos % (Auto) 0.3, Baso % (Auto) 0.2, Absolute Neuts (auto) 21.3 H, Absolute Lymphs (auto) 0.90, Nucleated RBC % 0 01/02/19 11:25: Sodium 137, Potassium 4.5, Chloride 103, Carbon Dioxide 18.0 L, Anion Gap 16 H, BUN 32 H, Creatinine 2.65 H, Estim Creat Clear Calc 25.96, Est GFR (MDRD) Af Amer 30 L, Est GFR (MDRD) Non-Af 25 L, BUN/Creatinine Ratio 12.1, Glucose 164 H, Calcium 8.9, Total Bilirubin 1.30 H, AST 642 H, ALT 108 H, Alkaline Phosphatase 101, Troponin I 0.058 H, Total Protein 7.2, Albumin 2.7 L, Globulin 4.5 H, Albumin/Globulin Ratio 0.6 L 01/02/19 11:25: Lactic Acid 5.3 H* 01/02/19 11:25: Total Creatine Kinase 97068 H 01/02/19 11:45: Ethyl Alcohol 8.0 01/02/19 14:43: Troponin I 0.075 H 01/02/19 17:20: Troponin I 0.101 H 01/02/19 18:26: POC Glucose 141 H 01/03/19 04:35: WBC 19.0 H, RBC 4.41 L, Hgb 15.2, Hct 45.1, MCV 102.3 H, MCH 34.5 H, MCHC 33.7, RDW Std Deviation 44.7 H, RDW Coeff of Carmita 11.9, Plt Count 204, MPV 11.0, Immature Gran % (Auto) 0.400, Neut % (Auto) 86.2 H, Lymph % (Auto) 3.6 L, [place] % (Auto) 8.8, Eos % (Auto) 0.8, Baso % (Auto) 0.2, Absolute Neuts (auto) 16.3 H, Absolute Lymphs (auto) 0.68 L, Nucleated RBC % 0, Differential Comment SCANNED, Diff Path Review October01/03/19 04:35: Sodium 141, Potassium 4.7, Chloride 108 H, Carbon Dioxide 21.0, Anion Gap 12, BUN 44 H, Creatinine 3.29 H, Estim Creat Clear Calc 20.91, Est GFR (MDRD) Af Amer 24 L, Est GFR (MDRD) Non-Af 19 L, BUN/Creatinine Ratio 13.4, Glucose 141 H, Calcium 7.9 L 01/03/19 04:35: Total Creatine Kinase 71163 H 01/03/19 04:35: AST Pending, ALT Pending Current Medications Al Hydroxide/Mg Hydroxide (Mylanta Ii) 30 ml PO Q6H PRN PRN PRN Reason: Gastric Burning Albuterol Sulfate (Ventolin Aerosols) 2.5 mg INHALATION Q2H PRN PRN PRN Reason: SOB/Wheezing Chlorhexidine Gluconate () 1 each TOPICAL DAILY [facility] Last Admin: 01/03/19 01:00 Dose: 1 each Documented by: Cyanocobalamin (Vitamin B12) [facility] Folic Acid (Folic Acid) 1 [facility] Stop: 01/05/19 08:01 Guaifenesin (Robitussin) 20 ml PO Q4H PRN PRN PRN Reason: COUGH Heparin Sodium (Porcine) (Heparin Na) 5,000 unit SC Q12 [facility] Last Admin: 01/02/19 21:49 Dose: 5,000 unit Documented by: Cefazolin Sodium () 1 gm in 50 mls @ 100 mls/hr IV Q8 [facility] Last Admin: 01/03/19 05:50 Dose: 100 mls/hr Documented by: Thiamine HCl 200 mg/ Sodium (Chloride) 52 mls @ 200 mls/hr IV DAILY [facility] Lactated Ringer's () 1,000 mls @ 150 mls/hr IV .Q6H40M [facility] Last Admin: 01/03/19 01:51 Dose: 150 mls/hr Documented by: Levothyroxine Sodium (Synthroid) 125 mcg PO DAILY@0600 [facility] Last Admin: 01/03/19 05:50 Dose: 125 mcg Documented by: Loperamide HCl (Imodium) 2 - 4 mg PO UD PRN PRN Reason: LOOSE STOOLS Loratadine (Claritin) 10 mg PO DAILY [facility] Lorazepam (Ativan) 1 mg IV Q4H PRN PRN PRN Reason: Severe Anxiety Lorazepam (Ativan) 2 mg IV X1 PRN PRN Reason: Seizure Lorazepam (Ativan) 1 mg PO Q4H [facility]; Taper Stop: 01/05/19 21:29 Last Admin: 01/03/19 05:50 Dose: 1 mg Documented by: Multivitamins (Multivitamin) [facility] Ondansetron HCl (Zofran) 4 mg IV Q8H PRN PRN PRN Reason: NAUSEA/VOMITING Ondansetron HCl (Zofran Odt) 4 mg PO Q6H PRN PRN PRN Reason: NAUSEA Oxycodone HCl (Oxyir) 5 mg PO Q4H PRN PRN PRN Reason: Moderate Pain (4-6/10) Pantoprazole Sodium (Protonix) 40 mg PO DAILY [facility] Promethazine HCl (Phenergan) 25 mg IM Q6H PRN PRN PRN Reason: Breakthrough Nausea/Vomiting Psyllium Hydrophilic Mucilloid (Metamucil) 1 packet PO DAILY PRN PRN PRN Reason: Constipation Senna (Senokot) 1 tablet PO QHS PRN PRN PRN Reason: Constipation Sodium Chloride () 10 - 40 ml IV UD PRN PRN Reason: SALINE FLUSH Last Admin: 01/03/19 06:02 Dose: 20 ml Documented by: Thiamine HCl (Vitamin B1) [facility] Stop: 01/05/19 08:01 Medical Necessity - Tobacco Use Smoking Status: Never smoker Assessment/Plan All Active Problems SAVANNAH (acute kidney injury) (Acute) Rhabdomyolysis (Acute) Fall (Acute) Patient is a 78-year-old gentleman who was admitted following a crush injury between his bed and wall with prolonged immobilization of 12 hours duration brought to the emergency department patient was found to have acute rhabdomyolysis with acute kidney injury. He was subsequently determined to have compartment syndrome consult was placed to orthopedic surgery seen by Dr. Archer who did take patient to OR for fasciotomy 1. Acute mechanical fall with significantly left upper extremity swelling consistent with compartment syndrome. Consult was placed orthopedic surgery patient underwent fasciotomy on 01/02/2019. 2. Acute rhabdomyolysis following prolonged episodes of immobilization admitted to a monitored bed started on hydration with monitoring of CPK levels 3. Acute kidney injury secondary to 2 on fluids with monitoring of electrolyte consultation was placed to nephrology awaiting input 3. Elevated troponin do suspect probable demand ischemia from patient acute kidney injury 2D echo ordered for EF assessment 3. Leukocytosis with elevated lactic acid level patient upon presentation did not have any evidence of infection however he did develop low-grade fever during the night of 01/02/2019. Patient subsequently started on Zosyn 6. Hypertension patient is on lisinopril which was held in view of his impaired kidney function 7. History of occasional alcohol use patient was placed on alcohol withdrawal medical stabilization protocol 8. Hypothyroidism-patient is on levothyroxine home dose continued 9. GERD on PPI 10. Obesity with BMI of 31.5 11. DVT prophylaxis SC heparin Advance planning; did discuss with the patient and regarding advanced directives as well as CODE STATUS. Did explain the various scenarios involved ( FULL CODE, DNR CCA, DNR CCA with no intubation, and DNR CC and what each meant) patient elected to remain full code. Order was placed. Time spent on discussion 18 minutes. Code Visit Inpatient E&M: 02758 Subs Hosp L3 Multi Select Codes - Hospitalists' Procedures Procedures: 90015 Advncd Care Plan 30 Min
[2019-01-03 07:45] LABS: AST(SGOT) 854 U/L (15-37); Alanine Aminotransfer ALT/SGPT 176 U/L (16-61)
--- NOTE | 2019-01-03 07:50 | ECHOCS_ITS ---
Reason For Study: dyspnea/sob Procedure This was a 2D Doppler, Color Flow transthoracic echocardiogram. The study was technically difficult. Due to body habitus and unable to lie in left lateral decubitus position due to left arm injury. Exam performed portable in ICU/CCU. Left Ventricle Normal size and thickness. The estimated ejection fraction is 75 %. Normal diastology for age. No regional wall motion abnormalities noted. Right Ventricle Normal size and thickness. Normal systolic function. Atria Normal left atrium. Normal right atrium. Normal atrial septum. Mitral Valve The mitral valve is structurally normal. No prolapse or stenosis seen. Tricuspid Valve Normal tricuspid valve. Trivial tricuspid valve insufficiency. Right ventricular systolic pressure estimated to be 30 mmHg. Aortic Valve Trisinus/trileaflet aortic valve. Moderate diffuse aortic valve thickening. Mild aortic stenosis. Peak aortic valve gradient 17 mmHg. Mean aortic valve gradient 9 mmHg. Pulmonic Valve The pulmonic valve is not well visualized. Great Vessels Normal aortic root. Normal arch. Normal inferior vena cava. Inferior vena cava collapse with sniff. Pericardium/Pleural No pericardial effusion. Medication Diluted definity 3.0ml given slow IV push to enhance endocardial definition. MMode/2D Measurements & Calculations LVIDd: 4.0 cm IVSd: 0.82 cm LVOT diam: 2.0 cm LVIDs: 2.7 cm LVPWd: 0.83 cm RVDd: 3.1 cm FS: 33.4 % LVOT area: 3.2 cm2 Ao root diam: 3.9 cm LAV(MOD-bp): 54.0 ml LA A4 area: 18.5 cm2 LAV(MOD-bp) Indexed: 23.2 ml/m2 LAV(MOD-sp2): 59.3 ml LAV(MOD-sp4): 46.8 ml RA A4 area: 12.3 cm2 Time Measurements MV dec time: 0.29 sec Doppler Measurements & Calculations MV E max jimmy: 60.1 cm/sec Lat Peak E' Jimmy: 8.9 cm/sec Med Peak E' Jimmy: 5.8 cm/sec MV A max jimmy: 97.9 cm/sec E/E' lat: 6.8 E/E' med: 10.4 MV E/A: 0.61 Ao V2 max: 204.2 cm/sec LV V1 max: 111.1 cm/sec SV(LVOT): 67.0 ml Ao max P.7 mmHg LV V1 max P.9 mmHg Ao V2 mean: 142.2 cm/sec LV V1 mean P.0 mmHg Ao mean P.0 mmHg LV V1 mean: 84.0 cm/sec Ao V2 VTI: 33.9 cm LV V1 VTI: 21.2 cm LIANNA(I,D): 2.0 cm2 LIANNA(V,D): 1.7 cm2 PA V2 max: 128.9 cm/sec TR max jimmy: 248.7 cm/sec TR max P.7 mmHg Interpretation Summary The estimated ejection fraction is 75 %. Normal diastology for age. Trivial tricuspid valve insufficiency. Right ventricular systolic pressure estimated to be 30 mmHg. Mild aortic stenosis. The study was technically difficult. Contrast injection was performed. Ordering Physician: Ricardo Jonas Referring Physician: OTD Performed By: Kanwal Owen RDCS, RVT
--- NOTE | 2019-01-03 09:51 | CASEMGMT ---
MELVA LEDESMA NOTE: Participated in interdisciplinary rounds. RN CALLIE spoke with pt and after rounds completed. Both pt and feel pt will need to go to a SNF after discharge from hospital. given list of several SNF's in-network with [facility]. [facility]st choice is [facility], 2nd choice is [facility]. Candy PATSY made aware. PT/OT evals pending. states she will be working today from [phone] but will be reachable on her cell phone. She also provided her work phone number and Son-in-law's contact information. Demographics updated. Cesar AQUINON MELVA CM
[2019-01-03] MEDS: Folic Acid 1 MG Tablet PO (09:56)
[2019-01-03] MEDS: Multivitamins,Therapeutic Tablet 1 TABLET PO (09:56)
--- NOTE | 2019-01-03 10:02 | CASEMGMT ---
Per RN CM patient and his would like [facility] as first choice and second would be [facility]. SW called [facility] post acute referral line and left a message with patient's name. PATSY also left a message for Saima as she is covering TCU. Candy [place] MSW
[2019-01-03] MEDS: Loratadine 10 MG Tablet PO (10:05)
[2019-01-03] MEDS: Thiamine Hydrochloride 100 MG Tablet PO (10:06)
[2019-01-03] MEDS: Pantoprazole Sodium 40 MG Tablet PO (10:06)
[2019-01-03] MEDS: Heparin Injection (Vial) 5,000 UNIT/ML VIAL 5000 UNIT SC ×2 (10:08→22:53)
[2019-01-03] MEDS: Cyanocobalamin 500 MCG Tablet 1000 MCG PO (11:36)
[2019-01-03] MEDS: 0.9% NaCl IVPB Med Flush (250 mL) 15 ML IV (11:36)
--- NOTE | 2019-01-03 11:46 | NURSING ---
Called and talked with Dr Archer to ask if dressing should be changed to the left arm. Dr Archer wants dressing to remain in place until patient is taken back to surgery on Tuesday. order placed to keep dressing intact.
--- NOTE | 2019-01-03 11:59 | CON.PCM_ITS ---
Problem List (1) SAVANNAH (acute kidney injury) Status: Acute Consultation - Renal 01/03/19 PCP/ Referring MD: Requesting physician: Dr Jonas Primary care physician: DANIEL MOSLEY Reason for Consultation:: SAVANNAH - History of Present Illness History of Present Illness: The patient is a 78 year old M who was found down by his at home. He has known history of alcohol abuse. Apparently he was trying to move a mattress and ended up falling down and was wedged in between the bed and wall for a prolonged time. His came in and called 911. Was found to have compartment syndrome of left upper extremity. Status post fasciotomy. Renal consulted for acute renal failure. He has severe rhabdomyolysis with CPK more than 20,000. He has been anuric since admission. Last known baseline creatinine is 1.1 from 2015. No recent labs. Currently complains of pain over the left arm where the surgery was done. No breathing problems. Spencer in place - Allergies Allergies: Allergies rosuvastatin calcium [From Crestor] Allergy (Verified 01/02/19 14:42) Unknown pt unsure niacin [From Niaspan Extended-Release] Adverse Reaction (Verified 01/02/19 14:42) Unknown pt unsure - Current Medications Current Medications: Current Medications Al Hydroxide/Mg Hydroxide (Mylanta Ii) 30 ml PO Q6H PRN PRN PRN Reason: Gastric Burning Albuterol Sulfate (Ventolin Aerosols) 2.5 mg INHALATION Q2H PRN PRN PRN Reason: SOB/Wheezing Chlorhexidine Gluconate () 1 each TOPICAL DAILY [facility] Last Admin: 01/03/19 01:00 Dose: 1 each Documented by: Cyanocobalamin (Vitamin B12) 1,000 mcg PO DAILYCM [facility] Last Admin: 01/03/19 11:36 Dose: 1,000 mcg Documented by: Folic Acid (Folic Acid) 1 mg PO DAILYCM NANCY Stop: 01/05/19 08:01 Last Admin: 01/03/19 09:56 Dose: 1 mg Documented by: Furosemide (Lasix) 80 mg IV X1 ONE Stop: 01/03/19 12:01 Guaifenesin (Robitussin) 20 ml PO Q4H PRN PRN PRN Reason: COUGH Heparin Sodium (Porcine) (Heparin Na) 5,000 unit SC Q12 [facility] Last Admin: 01/03/19 10:08 Dose: 5,000 unit Documented by: Lactated Ringer's () 1,000 mls @ 150 mls/hr IV .[id number] [facility] Last Admin: 01/03/19 10:12 Dose: 150 mls/hr Documented by: Piperacillin Sod/Tazobactam (Sod 3.375 gm/ Sodium Chloride) 50 mls @ 12.5 mls/hr IV Q12 [facility] Last Admin: 01/03/19 08:50 Dose: 12.5 mls/hr Documented by: Sodium Chloride () 250 mls @ 15 mls/hr IV .[id number] PRN PRN Reason: SALINE FLUSH Last Admin: 01/03/19 11:36 Dose: 15 mls/hr Documented by: Levothyroxine Sodium (Synthroid) 125 mcg PO DAILY@0600 [facility] Last Admin: 01/03/19 05:50 Dose: 125 mcg Documented by: Loperamide HCl (Imodium) 2 - 4 mg PO UD PRN PRN Reason: LOOSE STOOLS Loratadine (Claritin) 10 mg PO DAILY [facility] Last Admin: 01/03/19 10:05 Dose: 10 mg Documented by: Lorazepam (Ativan) 1 mg IV Q4H PRN PRN PRN Reason: Severe Anxiety Lorazepam (Ativan) 2 mg IV X1 PRN PRN Reason: Seizure Lorazepam (Ativan) 1 mg PO Q4H [facility]; Taper Stop: 01/05/19 21:29 Last Admin: 01/03/19 11:24 Dose: Not Given Documented by: Multivitamins (Multivitamin) 1 tablet PO DAILYCM [facility] Last Admin: 01/03/19 09:56 Dose: 1 tablet Documented by: Nutritional Formula (Lactose Free) (Ensure Enlive) 120 ml PO 4X/DAY [facility] Ondansetron HCl (Zofran) 4 mg IV Q8H PRN PRN PRN Reason: NAUSEA/VOMITING Ondansetron HCl (Zofran Odt) 4 mg PO Q6H PRN PRN PRN Reason: NAUSEA Oxycodone HCl (Oxyir) 5 mg PO Q4H PRN PRN PRN Reason: Moderate Pain (4-6/10) Pantoprazole Sodium (Protonix) 40 mg PO DAILY [facility] Last Admin: 01/03/19 10:06 Dose: 40 mg Documented by: Promethazine HCl (Phenergan) 25 mg IM Q6H PRN PRN PRN Reason: Breakthrough Nausea/Vomiting Psyllium Hydrophilic Mucilloid (Metamucil) 1 packet PO DAILY PRN PRN PRN Reason: Constipation Senna (Senokot) 1 tablet PO QHS PRN PRN PRN Reason: Constipation Sodium Chloride () 10 - 40 ml IV UD PRN PRN Reason: SALINE FLUSH Last Admin: 01/03/19 11:36 Dose: 20 ml Documented by: Sodium Chloride () 10 - 40 ml IV UD PRN PRN Reason: Midline Flush Thiamine HCl (Vitamin B1) 100 mg PO DAILYCM NANCY Stop: 01/05/19 08:01 Last Admin: 01/03/19 10:06 Dose: 100 mg Documented by: - Past Medical History Past Medical History (Chronic Problems): Chronic Problems Hypertension (Chronic) Esophageal stricture (Chronic) GERD (gastroesophageal reflux disease) (Chronic) Osteoarthritis (Chronic) Hypothyroid (Chronic) Hyperlipidemia (Chronic) - Past Surgical History Surgical History: - - Cholecystectomy, Esophageal stricture dilation/foreign body removal. - Social History Smoking Status: Never smoker - Family History Maternal History Items: Diabetes Paternal History Items: No pertinent history Review of Systems Constitutional: Denies: Chills, Fever, Weight Change HEENT: Denies: Head Aches, Sinus Congestion, Sinus Drainage Cardiovascular: Denies: Chest Pain, Palpitations Respiratory: Denies: Cough, Shortness of breath at rest, Sputum production Gastrointestinal: Denies: Abdominal Pain, Nausea, Vomiting Genitourinary: Denies: Dysuria Musculoskeletal: Reports: Arm Pain. Denies: Joint Pain, Joint Tenderness Skin: Denies: Rash, Wounds Neurological: Denies: Numbness, Tingling, Focal weakness Psychiatric: Denies: Anxiety, Depression, Homicidal Ideations, Suicidal I deations Hematologic/ Lymphatic: Denies: Easy Bruising, Easy Bleeding Patient Problems: Active and Suspected Problems SAVANNAH (acute kidney injury) (Acute) Rhabdomyolysis (Acute) Fall (Acute) - Physical Exam General: Alert - left arm fasciotomy, Oriented x3, Cooperative HEENT: Atraumatic, PERRLA, EOMI, Normocephalic Neck: Supple, No JVD, Negative Carotid Bruits Lungs: Clear to auscultation, Normal air movement Cardiovascular: Regular rate, No murmurs Abdomen: Bowel Sounds Present, Soft, Non Tender Extremities: No edema, Capillary Refill Less than 3 Seconds Skin: No rashes, No breakdown Musculoskeletal: No Tenderness to Palpation of Joints or Extremities Neurological: Cranial nerves II-XII grossly intact Psych/Mental Status: Normal Affect, Appropriate Vital Signs Temp Pulse Resp BP Pulse Ox 99.9 F H 106 H 16 134/66 H 95 01/03/19 10:00 01/03/19 10:00 01/03/19 10:00 01/03/19 10:00 01/03/19 08:00 Oxygen Delivery Method Room Air Weight: 109.7 kg Body Mass Index (BMI) 30.7 Intake and Output for Last 24 Hours 01/01/19 01/02/19 01/03/19 23:59 23:59 23:59 Intake Total 1200 / 2223 3925 / 3925 Output Total 70 / 70 Balance 1200 / 2223 3855 / 3855 Laboratory Tests Past 24 Hrs 01/02/19 01/02/19 01/02/19 11:25 11:25 11:45 WBC RBC Hgb Hct MCV MCH MCHC RDW Std Deviation RDW Coeff of Carmita Plt Count MPV Immature Gran % (Auto) Neut % (Auto) Lymph % (Auto) [place] % (Auto) Eos % (Auto) Baso % (Auto) Absolute Neuts (auto) Absolute Lymphs (auto) Nucleated RBC % Differential Comment Diff Path Review Sodium Potassium Chloride Carbon Dioxide Anion Gap BUN Creatinine Estim Creat Clear Calc Est GFR (MDRD) Af Amer Est GFR (MDRD) Non-Af BUN/Creatinine Ratio Glucose Lactic Acid 5.3 H* Calcium AST ALT Total Creatine Kinase 97181 H Troponin I Ethyl Alcohol 8.0 01/02/19 01/02/19 01/03/19 14:43 17:20 04:35 WBC 19.0 H RBC 4.41 L Hgb 15.2 Hct 45.1 MCV 102.3 H MCH 34.5 H MCHC 33.7 RDW Std Deviation 44.7 H RDW Coeff of Carmita 11.9 Plt Count 204 MPV 11.0 Immature Gran % (Auto) 0.400 Neut % (Auto) 86.2 H Lymph % (Auto) 3.6 L [place] % (Auto) 8.8 Eos % (Auto) 0.8 Baso % (Auto) 0.2 Absolute Neuts (auto) 16.3 H Absolute Lymphs (auto) 0.68 L Nucleated RBC % 0 Differential Comment SCANNED Diff Path Review May foll Sodium Potassium Chloride Carbon Dioxide Anion Gap BUN Creatinine Estim Creat Clear Calc Est GFR (MDRD) Af Amer Est GFR (MDRD) Non-Af BUN/Creatinine Ratio Glucose Lactic Acid Calcium AST ALT Total Creatine Kinase Troponin I 0.075 H 0.101 H Ethyl Alcohol 01/03/19 01/03/19 01/03/19 04:35 04:35 04:35 WBC RBC Hgb Hct MCV MCH MCHC RDW Std Deviation RDW Coeff of Carmita Plt Count MPV Immature Gran % (Auto) Neut % (Auto) Lymph % (Auto) [place] % (Auto) Eos % (Auto) Baso % (Auto) Absolute Neuts (auto) Absolute Lymphs (auto) Nucleated RBC % Differential Comment Diff Path Review Sodium 141 Potassium 4.7 Chloride 108 H Carbon Dioxide 21.0 Anion Gap 12 BUN 44 H Creatinine 3.29 H Estim Creat Clear Calc 20.91 Est GFR (MDRD) Af Amer 24 L Est GFR (MDRD) Non-Af 19 L BUN/Creatinine Ratio 13.4 Glucose 141 H Lactic Acid Calcium 7.9 L AST 854 H ALT 176 H Total Creatine Kinase 55419 H Troponin I Ethyl Alcohol 01/03/19 11:35 WBC RBC Hgb Hct MCV MCH MCHC RDW Std Deviation RDW Coeff of Carmita Plt Count MPV Immature Gran % (Auto) Neut % (Auto) Lymph % (Auto) [place] % (Auto) Eos % (Auto) Baso % (Auto) Absolute Neuts (auto) Absolute Lymphs (auto) Nucleated RBC % Differential Comment Diff Path Review Sodium Potassium Chloride Carbon Dioxide Anion Gap BUN Creatinine Estim Creat Clear Calc Est GFR (MDRD) Af Amer Est GFR (MDRD) Non-Af BUN/Creatinine Ratio Glucose Lactic Acid Pending Calcium AST ALT Total Creatine Kinase Troponin I Ethyl Alcohol POC Glucose 01/02/19 18:26 POC Glucose 141 H Assessment/Plan All Active Problems SAVANNAH (acute kidney injury) (Acute) Rhabdomyolysis (Acute) Fall (Acute) Acute renal failure rhabdomyolysis acidosis likely related to SAVANNAH now likely sepsis - work up being done regarding source of infection Currently indents renal failure from acute rhabdomyolysis. Anuric. Potassium levels are acceptable. Bicarbonate is low, breathing appears okay. Will try high-dose Lasix to see if we can improve urine output. If no response to Lasix, will stop fluids. No acute indications for dialysis today.
[2019-01-03 12:07] LABS: Lactic Acid 1.7 mmol/L (0.4-2.0)
[2019-01-03] MEDS: Furosemide 100 MG/10 ML Vial 80 MG IV (12:37)
[2019-01-03 13:23] LABS: Acetaminophen (Tylenol) Level 2.6 ug/mL (10.0-30.0)
[2019-01-03 15:12] LABS: M R Staph aureus DNA By PCR Negative (Negative); Probe Check PASS; Specimen Processing Control PASS
--- NOTE | 2019-01-03 15:59 | PCM.PN.ORT ---
Patient Problems: Active and Suspected Problems SAVANNAH (acute kidney injury) (Acute) Rhabdomyolysis (Acute) Fall (Acute) Subjective: Patient is sitting up in bed and states that he is doing better today. He states that he still has a lot of pain in the arm. He states that he still cant feel anything in the hand and can't move the arm at all. Objective: Patient is alert and oriented x 3 There is evident edema of the left lower arm / hand with some minor skin palor He has diminished left distal radial pulse at 1+ Slight delay in capillary refill of fingers of left hand He has sensation to pain and light touch in the left upper arm. He also states that he can feel light touch in the midshaft of the forearm. He has no sensation to touch or pain in the distal forearm, wrist, or the fingers. He has no motor function of the fingers, wrist, or the elbow on request He has an evident minor resting tremor and more moderate intention tremor. - Physical Exam General: Alert, Oriented x3, Cooperative, No apparent distress, Well developed, Well nourished Oral: Moist Mucosa Extremities: No Calf Tenderness, Cool, Diminished Peripheral Pulses - left wrist / hand, Edema - left arm Skin: Skin Tear - minor abrasions noted on the thumb in the webbing between thumb and index finger Neurological: - - Patient does have an evident minor resting tremor as well as a more evident intention tremor. Psych/Mental Status: Alert and oriented to time, place, person, mood and affect Vital Signs Temp Pulse Resp BP Pulse Ox 98.2 F 114 H 18 136/82 H 94 01/03/19 14:37 01/03/19 15:58 01/03/19 14:37 01/03/19 14:37 01/03/19 14:29 Oxygen Delivery Method Room Air Weight: 241 lb 13.553 oz Body Mass Index (BMI) 30.7 Intake and Output for Last 24 Hours 01/01/19 01/02/19 01/03/19 23:59 23:59 23:59 Intake Total 1200 / 2223 3925 / 3925 Output Total 70 / 70 Balance 1200 / 2223 3855 / 3855 Laboratory Tests Past 24 Hrs 01/02/19 01/03/19 01/03/19 17:20 04:35 04:35 WBC 19.0 H RBC 4.41 L Hgb 15.2 Hct 45.1 MCV 102.3 H MCH 34.5 H MCHC 33.7 RDW Std Deviation 44.7 H RDW Coeff of Carmita 11.9 Plt Count 204 MPV 11.0 Immature Gran % (Auto) 0.400 Neut % (Auto) 86.2 H Lymph % (Auto) 3.6 L [place] % (Auto) 8.8 Eos % (Auto) 0.8 Baso % (Auto) 0.2 Absolute Neuts (auto) 16.3 H Absolute Lymphs (auto) 0.68 L Nucleated RBC % 0 Differential Comment SCANNED Diff Path Review May foll Sodium 141 Potassium 4.7 Chloride 108 H Carbon Dioxide 21.0 Anion Gap 12 BUN 44 H Creatinine 3.29 H Estim Creat Clear Calc 20.91 Est GFR (MDRD) Af Amer 24 L Est GFR (MDRD) Non-Af 19 L BUN/Creatinine Ratio 13.4 Glucose 141 H Lactic Acid Calcium 7.9 L AST ALT Total Creatine Kinase Troponin I 0.101 H Acetaminophen Hepatitis A IgM Ab Hep Bs Antigen Hep B Core IgM Ab Hepatitis C Ab (EIA) MRSA (PCR) 01/03/19 01/03/19 01/03/19 04:35 04:35 11:35 WBC RBC Hgb Hct MCV MCH MCHC RDW Std Deviation RDW Coeff of Carmita Plt Count MPV Immature Gran % (Auto) Neut % (Auto) Lymph % (Auto) [place] % (Auto) Eos % (Auto) Baso % (Auto) Absolute Neuts (auto) Absolute Lymphs (auto) Nucleated RBC % Differential Comment Diff Path Review Sodium Potassium Chloride Carbon Dioxide Anion Gap BUN Creatinine Estim Creat Clear Calc Est GFR (MDRD) Af Amer Est GFR (MDRD) Non-Af BUN/Creatinine Ratio Glucose Lactic Acid 1.7 Calcium AST 854 H ALT 176 H Total Creatine Kinase 74700 H Troponin I Acetaminophen Hepatitis A IgM Ab Hep Bs Antigen Hep B Core IgM Ab Hepatitis C Ab (EIA) MRSA (PCR) 01/03/19 01/03/19 01/03/19 12:35 12:35 13:35 WBC RBC Hgb Hct MCV MCH MCHC RDW Std Deviation RDW Coeff of Carmita Plt Count MPV Immature Gran % (Auto) Neut % (Auto) Lymph % (Auto) [place] % (Auto) Eos % (Auto) Baso % (Auto) Absolute Neuts (auto) Absolute Lymphs (auto) Nucleated RBC % Differential Comment Diff Path Review Sodium Potassium Chloride Carbon Dioxide Anion Gap BUN Creatinine Estim Creat Clear Calc Est GFR (MDRD) Af Amer Est GFR (MDRD) Non-Af BUN/Creatinine Ratio Glucose Lactic Acid Calcium AST ALT Total Creatine Kinase Troponin I Acetaminophen 2.6 L Hepatitis A IgM Ab Pending Hep Bs Antigen Pending Hep B Core IgM Ab Pending Hepatitis C Ab (EIA) Pending MRSA (PCR) Negative POC Glucose 01/02/19 18:26 POC Glucose 141 H Medical Necessity - Tobacco Use Smoking Status: Never smoker Assessment/Plan All Active Problems SAVANNAH (acute kidney injury) (Acute) Rhabdomyolysis (Acute) Fall (Acute) Status post day 1 from left forearm fasciotomy secondary to compartment syndrome Patient overall doing well and was actually transferred out of ICU to PCU. He continues to have pain at this time and does not have signs of motor function of the elbow, wrist, and hand. He also lacks sensation in the arm from the mid shaft forearm distal to the fingers. There are faint radial pulses and capillary refill only slightly delayed. Will continue Physical and Occupational therapy Outside of PT/OT though patient to refrain from any use / pressure onto the arm Can continue to ice the extremity Plan is to return to operating room likely tuesday for closure and/or possible wound vac.
[2019-01-03 17:52] LABS: Bacteria 0 SEEN /hpf (None Seen); Mucous, Urine 0 SEEN /hpf (<or=2+); Red Blood Cells-Urine 0 SEEN /hpf (0-5); Squamous Epithelial Cells - UA 0 SEEN /hpf (0-5)
[2019-01-03 19:05] LABS: Color, Urine Yellow (Yellow); Glucose, Dipstick 50 mg/dl (Normal); Ketone-Dipstick 5 mg/dl (Negative); Leukocyte Esterase-Dipstick 500 /ul (Negative); Nitrite-Dipstick Positive (Negative); Occult Blood-Urine 250 /ul (Negative); Protein-Dipstick 100 mg/dl (Negative); Specific Gravity, Urine 1.015 (1.002-1.030); Urine Bilirubin Dipstick Negative (Negative); Urine Clarity Turbid (Clear); Urine Urobilinogen Normal (Normal)
[2019-01-03 19:27] LABS: White Blood Cells >100 SEEN /hpf (0-5)
[2019-01-03] MEDS: oxyCODONE 5 MG Tablet PO (19:29)
[2019-01-04] VITALS (19 sets, daily range): BP systolic 106–189; BP diastolic 47–97; PULSE 76–150; RESP 16–22; TEMP 36.2–37.3; O2SAT 93–98
[2019-01-04 04:06] LABS: HEPATITIS B SURFACE AG Negative (Negative); Hepatitis A IgM Antibody Negative (Negative); Hepatitis B Core AB IgM Negative (Negative)
[2019-01-04] MEDS: Levothyroxine 125 MCG Tablet PO (05:52)
[2019-01-04] MEDS: oxyCODONE 5 MG Tablet PO ×5 (05:52→19:46)
[2019-01-04] MEDS: 0.9% NaCl Peripheral Flush Adult/Peds IV (06:44)
--- NOTE | 2019-01-04 06:47 | PCA ---
01/04/19 0647 RN and manager marketing communications did not remove all pillows from under pt arm due to pt being in pain.
[2019-01-04] MEDS: LORazepam 1 MG Tablet PO (07:44)
[2019-01-04] MEDS: Cyanocobalamin 500 MCG Tablet 1000 MCG PO (07:45)
[2019-01-04] MEDS: Thiamine Hydrochloride 100 MG Tablet PO (07:45)
[2019-01-04] MEDS: Psyllium 1 PACKET PO (07:45)
[2019-01-04] MEDS: Folic Acid 1 MG Tablet PO (07:46)
[2019-01-04] MEDS: Multivitamins,Therapeutic Tablet 1 TABLET PO (07:46)
--- NOTE | 2019-01-04 08:10 | PN_ITS ---
Patient Problems: Active and Suspected Problems SAVANNAH (acute kidney injury) (Acute) Rhabdomyolysis (Acute) Fall (Acute) Subjective: The patient was seen and examined at the bedside this morning. Events from the last 24 hours have been reviewed. The patient is currently afebrile, hemodynamically stable and maintaining appropriate oxygen saturations on room air. The patient is currently documented to be overall net +6.5 L for the admission. The patient did receive a one-time dose of IV Lasix 80 mg yesterday. The patient does continue to complain of arm pain. Objective: The patient's most recent lab work, culture data and imaging studies have all been personally reviewed. Surface echocardiogram revealed normal LV size and thickness with an ejection fraction of 75%. RV was normal in size and thickness. Right ventricular systolic pressure was estimated to be 30 mmHg. There was mild aortic stenosis. Blood and urine cultures are pending. - Physical Exam General: Alert, Cooperative, No apparent distress HEENT: Atraumatic, PERRLA, Normocephalic Oral: No Gingival or Mucosal Lesions/ Ulcerations Neck: Supple, No Nodes, Trachea Midline Lungs: No rhonchi, No wheeze, No rales Cardiovascular: Normal S1, Normal S2, Irregular Rate Abdomen: Bowel Sounds Present, Soft, Non Tender Extremities: No clubbing, No cyanosis, No edema Skin: - - Surgical dressing in place over left upper extremity Musculoskeletal: No Muscle Wasting Lymphatic: No Cervical, Supraclavicular, or Inguinal Adenopathy Neurological: Neuro grossly intact Psych/Mental Status: Normal Affect, Appropriate Vital Signs Temp Pulse Resp BP Pulse Ox 99.1 F 118 H 16 119/47 L 93 01/04/19 06:00 01/04/19 06:46 01/04/19 06:00 01/04/19 06:00 01/04/19 07:25 Oxygen Delivery Method Room Air Weight: 250 lb 0.067 oz Body Mass Index (BMI) 30.7 Intake and Output for Last 24 Hours 01/02/19 01/03/19 01/04/19 23:59 23:59 23:59 Intake Total 1200 / 2223 5080.6 / 5080.6 340 / 340 Output Total 140 / 140 15 / 15 Balance 1200 / 2223 4940.6 / 4940.6 325 / 325 Laboratory Tests Past 24 Hrs 01/03/19 01/03/19 01/03/19 11:35 12:35 12:35 WBC RBC Hgb Hct MCV MCH MCHC RDW Std Deviation RDW Coeff of Carmita Plt Count Neut % (Auto) Absolute Neuts (auto) Sodium Potassium Chloride Carbon Dioxide Anion Gap BUN Creatinine Est GFR (MDRD) Af Amer Est GFR (MDRD) Non-Af BUN/Creatinine Ratio Glucose Lactic Acid 1.7 Calcium Magnesium Total Bilirubin Direct Bilirubin AST ALT Alkaline Phosphatase Total Creatine Kinase Total Protein Albumin Urine Color Urine Clarity Urine pH Ur Specific [place] Urine Protein Urine Glucose (UA) Urine Ketones Urine Occult Blood Urine Nitrite Urine Bilirubin Urine Urobilinogen Ur Leukocyte Esterase Urine RBC Urine WBC Ur Squamous Epith Cells Urine Bacteria Urine Mucus Acetaminophen 2.6 L Hepatitis A IgM Ab Pending Hep Bs Antigen Pending Hep B Core IgM Ab Pending Hepatitis C Ab (EIA) Pending MRSA (PCR) 01/03/19 01/03/19 01/04/19 13:35 17:34 07:10 WBC RBC Hgb Hct MCV MCH MCHC RDW Std Deviation RDW Coeff of Carmita Plt Count Neut % (Auto) Absolute Neuts (auto) Sodium Pending Potassium Pending Chloride Pending Carbon Dioxide Pending Anion Gap Pending BUN Pending Creatinine Pending Est GFR (MDRD) Af Amer Pending Est GFR (MDRD) Non-Af Pending BUN/Creatinine Ratio Pending Glucose Pending Lactic Acid Calcium Pending Magnesium Total Bilirubin Direct Bilirubin AST ALT Alkaline Phosphatase Total Creatine Kinase Total Protein Albumin Urine Color Yellow Urine Clarity Turbid Urine pH 5.0 Ur Specific [place] 1.015 Urine Protein 100 H Urine Glucose (UA) 50 H Urine Ketones 5 H Urine Occult Blood 250 H Urine Nitrite Positive H Urine Bilirubin Negative Urine Urobilinogen Normal Ur Leukocyte Esterase 500 H Urine RBC 0 SEEN Urine WBC >100 SEEN Ur Squamous Epith Cells 0 SEEN Urine Bacteria 0 SEEN Urine Mucus 0 SEEN Acetaminophen Hepatitis A IgM Ab Hep Bs Antigen Hep B Core IgM Ab Hepatitis C Ab (EIA) MRSA (PCR) Negative 01/04/19 01/04/19 08:02 08:02 WBC Pending RBC Pending Hgb Pending Hct Pending MCV Pending MCH Pending MCHC Pending RDW Std Deviation Pending RDW Coeff of Carmita Pending Plt Count Pending Neut % (Auto) Pending Absolute Neuts (auto) Pending Sodium Potassium Chloride Carbon Dioxide Anion Gap BUN Creatinine Est GFR (MDRD) Af Amer Est GFR (MDRD) Non-Af BUN/Creatinine Ratio Glucose Lactic Acid Calcium Magnesium Pending Total Bilirubin Pending Direct Bilirubin Pending AST Pending ALT Pending Alkaline Phosphatase Pending Total Creatine Kinase Pending Total Protein Pending Albumin Pending Urine Color Urine Clarity Urine pH Ur Specific [place] Urine Protein Urine Glucose (UA) Urine Ketones Urine Occult Blood Urine Nitrite Urine Bilirubin Urine Urobilinogen Ur Leukocyte Esterase Urine RBC Urine WBC Ur Squamous Epith Cells Urine Bacteria Urine Mucus Acetaminophen Hepatitis A IgM Ab Hep Bs Antigen Hep B Core IgM Ab Hepatitis C Ab (EIA) MRSA (PCR) Clinical Impression(s) from Imaging Studies Brain CT 01/02/19 11:26 IMPRESSION: Chronic involutional changes of the brain. Electronically Signed: Marcos Madrid MD at 12:22 EDT , Service support , Cervical Spine CT 01/02/19 11:27 IMPRESSION: Multilevel degenerative changes, as described above. Findings most pronounced at C3-4. No fracture or suspicious osseous lesion Electronically Signed: Marcos Madrid MD at 12:23 EDT , Service support , Forearm X-Ray 01/02/19 11:27 IMPRESSION: Normal x-ray examination of the radius and ulna. Electronically Signed: Marcos Madrid MD at 12:44 EDT , Service support , Hand X-Ray 01/02/19 11:27 IMPRESSION: Demineralization of the osseous structures with polyarticular arthrosis, most notably at the base of the thumb. No demonstrated fracture or suspicious osseous lesion Electronically Signed: Marcos Madrid MD at 12:43 EDT , Service support , Chest X-Ray 01/02/19 12:05 IMPRESSION: Degenerative changes, as described above. No demonstrated acute cardiopulmonary process. No interval change Electronically Signed: Marcos Madrid MD at 12:44 EDT , Service support , Medical Necessity - Tobacco Use Smoking Status: Never smoker Assessment/Plan All Active Problems SAVANNAH (acute kidney injury) (Acute) Rhabdomyolysis (Acute) Fall (Acute) RECOMMENDATIONS: 1. Continue antibiotics, pending finalized culture results. 2. Additional surgical intervention per orthopedics. 3. Continue local wound care and pain control regimen. 4. Encourage incentive spirometer use and mobilize patient as tolerated. IMPRESSIONS: 1. Distal left upper extremity compartment syndrome following mechanical fall, now POD #2 s/p fasciotomy The patient was taken to the OR on the evening of January 02 and underwent fasciotomy. For now, we will continue local wound care and pain control regimen. Defer further operative management to orthopedic surgery. 2. Acute kidney injury/rhabdomyolysis Renal function and urine output continues to worsen. Nephrology with potential plans for dialysis. CK level has improved. 3. Troponin elevation Concerned that this is related to demand ischemia in the setting of the patient's acute presentation. 4. Gram-negative cystitis Although sepsis was not initially considered on presentation to the hospital, the patient did develop a low-grade fevers. I agree with continuing broad- spectrum antimicrobial coverage for now. Preliminary urine Gram stain appears to be demonstrating gram-negative lactose reed cleaner. 5. History of alcohol dependency/neuropathy/hypothyroidism/hypertension/GERD Complicates care, management, recovery and prognosis. Continue to monitor for signs of alcohol withdrawal. Continue thiamine and folate repletion. Hold home DEEPTI inhibitor due to acute renal insufficiency. This note was generated with [employer] dictation software. It may contain incorrect words, spelling, and punctuation that were not noted in checking the note before signing. Code Visit Inpatient E&M: 37407 Subs Hosp L2
[2019-01-04 08:20] LABS: Absolute Lymphocyte Count 0.96 X10^3/uL (0.83-4.51); Absolute Neutrophil Count 12.2 X10^3/uL (2.0-7.7); Basophil# 0.03 X10^3/uL; Basophil% 0.2 % (0-1); Eosinophil# 0.01 X10^3/uL; Eosinophils% 0.1 % (0-5); Hematocrit 39.7 % (40-54); Hemoglobin 13.3 g/dL (13.0-16.5); Lymphocyte # 0.96 X10^3/ul (4.0); Lymphocyte % 6.5 % (19-41); Mean Corp Hgb Conc 33.5 g/dL (32-36); Mean Corpuscular Hgb 33.5 pg (27.0-32.0); Mean Platelet Vol. 12.1 fl (6.2-12.0); Monocyte% 10.1 % (0-10); NRBC Flagged by Analyzer 0 % (0-5); Neutrophil # 12.22 X10^3/uL (2.7-7.7); Neutrophil % 82.5 % (47-70); Platelet Count 110 K/mm3 (150-450); RBC Distribution Width CV 12.1 % (11.6-14.6); RBC Distribution Width SD 44.6 fl (35.1-43.9); Red Blood Count 3.97 M/mm3 (4.6-6.2); White Blood Count 14.8 K/mm3 (4.4-11.0)
[2019-01-04 08:23] LABS: Anion Gap 13 (5-15); BUN 63 mg/dL (7-18); BUN/Creat Ratio 11.9 RATIO (10-20); Calcium,Total 7.7 mg/dL (8.5-10.1); Chloride 107 mmol/L (98-107); EST Glomerular Filtration Rate 11 mL/min (>60); Est Glom Filt Rate - Afr Amer 14 mL/min (>60); Estimated Creatinine Clearance 12.98 ml/min; Glucose 124 mg/dL (74-106); Potassium 5.3 mmol/L (3.5-5.1); Sodium Level 137 mmol/L (136-145)
[2019-01-04 08:51] LABS: AST(SGOT) 333 U/L (15-37); Alanine Aminotransfer ALT/SGPT 49 U/L (16-61); Albumin, Serum 1.7 g/dL (3.2-5.0); Alkaline Phosphatase 102 U/L (45-117); Bilirubin, Direct 0.11 mg/dL (0.00-0.30); CPK Total, Creatine Kinase 5730 U/L (39-308); Globulin 4.3 g/dL (2.2-4.2); Magnesium 2.6 mg/dL (1.6-2.6)
[2019-01-04] MEDS: Loratadine 10 MG Tablet PO (09:58)
[2019-01-04] MEDS: Pantoprazole Sodium 40 MG Tablet PO (09:58)
[2019-01-04] MEDS: Heparin Injection (Vial) 5,000 UNIT/ML VIAL 5000 UNIT SC ×2 (09:59→21:55)
--- NOTE | 2019-01-04 10:21 | PCM.PN.HOSP ---
Patient Problems: Active and Suspected Problems SAVANNAH (acute kidney injury) (Acute) Rhabdomyolysis (Acute) Fall (Acute) Subjective: Patient was transferred from the intensive care unit to the progressive care unit on 01/03/2019. Seen this a.m. patient complains of low back pain as well as discomfort in the left upper extremity. His kidney function continues to worsen. Patient is spiked low-grade fever the day prior urinalysis obtained subsequently came back consistent with cystitis patient started on antibiotics culture sent. Objective: GENERAL: cooperative HEENT: Atraumatic; EYES; Anicteric, Normal Conjunctiva NECK; supple, normal thyroid, RESPIRATORY: Diminished to auscultation CARDIOVASCULAR: Regular S1 S2, GI: soft, non-tender, normoactive bowel sounds, : No Renal angle tenderness; EXTREMITIES: Left upper extremity surgical dressing MUSCULOSKELETAL: no muscle waisting NEURO: Awake; no lateralizing signs. SKIN: As described above PSYCH; Normal affect Vitals/I&O's: Vital Signs Temp Pulse Resp BP Pulse Ox 98.3 F 100 18 157/81 H 98 01/04/19 09:38 01/04/19 09:38 01/04/19 09:38 01/04/19 09:38 01/04/19 09:38 Oxygen Delivery Method Room Air Weight: 113.4 kg Body Mass Index (BMI) 30.7 Intake and Output for Last 24 Hours 01/02/19 01/03/19 01/04/19 23:59 23:59 23:59 Intake Total 1200 / 2223 5080.6 / 5080.6 340 / 340 Output Total 140 / 140 15 / 15 Balance 1200 / 2223 4940.6 / 4940.6 325 / 325 Laboratory Results 01/03/19 11:35: Lactic Acid 1.7 01/03/19 12:35: Acetaminophen 2.6 L 01/03/19 12:35: Hepatitis A IgM Ab Pending, Hep Bs Antigen Pending, Hep B Core IgM Ab Pending, Hepatitis C Ab (EIA) Pending 01/03/19 13:35: MRSA (PCR) Negative 01/03/19 17:34: Urine Color Yellow, Urine Clarity Turbid, Urine pH 5.0, Ur Specific [place] 1.015, Urine Protein 100 H, Urine Glucose (UA) 50 H, Urine Ketones 5 H, Urine Occult Blood 250 H, Urine Nitrite Positive H, Urine Bilirubin Negative, Urine Urobilinogen Normal, Ur Leukocyte Esterase 500 H, Urine RBC 0 SEEN, Urine WBC >100 SEEN, Ur Squamous Epith Cells 0 SEEN, Urine Bacteria 0 SEEN, Urine Mucus 0 SEEN 01/04/19 07:10: Sodium 137, Potassium 5.3 H, Chloride 107, Carbon Dioxide 17.0 L, Anion Gap 13, BUN 63 H, Creatinine 5.30 H, Estim Creat Clear Calc 12.98, Est GFR (MDRD) Af Amer 14 L, Est GFR (MDRD) Non-Af 11 L, BUN/Creatinine Ratio 11.9, Glucose 124 H, Calcium 7.7 L 01/04/19 08:02: WBC 14.8 H, RBC 3.97 L, Hgb 13.3, Hct 39.7 L, MCV 100.0 H, MCH 33.5 H, MCHC 33.5, RDW Std Deviation 44.6 H, RDW Coeff of Carmita 12.1, Plt Count 110 L, MPV 12.1 H, Immature Gran % (Auto) 0.600, Neut % (Auto) 82.5 H, Lymph % (Auto) 6.5 L, [place] % (Auto) 10.1 H, Eos % (Auto) 0.1, Baso % (Auto) 0.2, Absolute Neuts (auto) 12.2 H, Absolute Lymphs (auto) 0.96, Nucleated RBC % 0 01/04/19 08:02: Magnesium 2.6, Total Bilirubin 0.40, Direct Bilirubin 0.11, AST 333 H, ALT 49, Alkaline Phosphatase 102, Total Creatine Kinase 5730 H, Total Protein 6.0 L, Albumin 1.7 L, Globulin 4.3 H Current Medications Al Hydroxide/Mg Hydroxide (Mylanta Ii) 30 ml PO Q6H PRN PRN PRN Reason: Gastric Burning Albuterol Sulfate (Ventolin Aerosols) 2.5 mg INHALATION Q2H PRN PRN PRN Reason: SOB/Wheezing Chlorhexidine Gluconate () 1 each TOPICAL DAILY [facility] Last Admin: 01/04/19 07:49 Dose: Not Given Documented by: [facility]ocobalamin ([facility]itamin B[facility]) [facility] Admin: 01/04/19 07:45 Dose: 1,000 mcg Documented by: Folic Acid (Folic Acid) [facility] Stop: 01/05/19 08:01 Last Admin: 01/04/19 07:46 Dose: 1 mg Documented by: Guaifenesin (Robitussin) 20 ml PO Q4H PRN PRN PRN Reason: COUGH Heparin Sodium (Porcine) (Heparin Na) 5,000 unit SC Q12 [facility] Last Admin: 01/04/19 09:59 Dose: 5,000 unit Documented by: Piperacillin Sod/Tazobactam (Sod 3.375 gm/ Sodium Chloride) 50 mls @ 12.5 mls/hr IV Q12 [facility] Last Admin: 01/03/19 22:53 Dose: 12.5 mls/hr Documented by: Sodium Chloride () 250 mls @ 15 mls/hr IV .[id number] PRN PRN Reason: SALINE FLUSH Last Admin: 01/03/19 11:36 Dose: 15 mls/hr Documented by: Levothyroxine Sodium (Synthroid) 125 mcg PO DAILY@0600 [facility] Last Admin: 01/04/19 05:52 Dose: 125 mcg Documented by: Loperamide HCl (Imodium) 2 - 4 mg PO UD PRN PRN Reason: LOOSE STOOLS Loratadine (Claritin) 10 mg PO DAILY [facility] Last Admin: 01/04/19 09:58 Dose: 10 mg Documented by: Lorazepam (Ativan) 1 mg IV Q4H PRN PRN PRN Reason: Severe Anxiety Lorazepam (Ativan) 2 mg IV X1 PRN PRN Reason: Seizure Lorazepam (Ativan) 1 mg PO Q6H [facility]; Taper Stop: 01/05/19 21:29 Last Admin: 01/04/19 07:44 Dose: 1 mg Documented by: Multivitamins (Multivitamin) [facility] Last Admin: 01/04/19 07:46 Dose: 1 tablet Documented by: Nutritional Formula (Lactose Free) (Ensure Enlive) 120 ml PO 4X/DAY [facility] Last Admin: 01/04/19 09:57 Dose: 120 ml Documented by: Ondansetron HCl (Zofran) 4 mg IV Q8H PRN PRN PRN Reason: NAUSEA/VOMITING Ondansetron HCl (Zofran Odt) 4 mg PO Q6H PRN PRN PRN Reason: NAUSEA Oxycodone HCl (Oxyir) 5 mg PO Q4H PRN PRN PRN Reason: Moderate Pain (4-6/10) Last Admin: 01/04/19 05:52 Dose: 5 mg Documented by: Pantoprazole Sodium (Protonix) 40 mg PO DAILY [facility] Last Admin: 01/04/19 09:58 Dose: 40 mg Documented by: Promethazine HCl (Phenergan) 25 mg IM Q6H PRN PRN PRN Reason: Breakthrough Nausea/Vomiting Psyllium Hydrophilic Mucilloid (Metamucil) 1 packet PO DAILY PRN PRN PRN Reason: Constipation Last Admin: 01/04/19 07:45 Dose: 1 packet Documented by: Senna (Senokot) 1 tablet PO QHS PRN PRN PRN Reason: Constipation Sodium Chloride () 10 - 40 ml IV UD PRN PRN Reason: SALINE FLUSH Last Admin: 01/04/19 06:44 Dose: 30 ml Documented by: Sodium Chloride () 10 - 40 ml IV UD PRN PRN Reason: Midline Flush Thiamine HCl (Vitamin B1) [facility] Stop: 01/05/19 08:01 Last Admin: 01/04/19 07:45 Dose: 100 mg Documented by: Medical Necessity - Tobacco Use Smoking Status: Never smoker Assessment/Plan All Active Problems SAVANNAH (acute kidney injury) (Acute) Rhabdomyolysis (Acute) Fall (Acute) Patient is a 78-year-old gentleman who was admitted following a crush injury between his bed and wall with prolonged immobilization of 12 hours duration brought to the emergency department patient was found to have acute rhabdomyolysis with acute kidney injury. He was subsequently determined to have compartment syndrome consult was placed to orthopedic surgery seen by Dr. Archer who did take patient to OR for fasciotomy 1. Acute mechanical fall with significantly left upper extremity swelling consistent with compartment syndrome. Consult was placed orthopedic surgery patient underwent fasciotomy on 01/02/2019. ~01/04/2019: Plan is for patient undergo secondary closure on 01/05/2019 2. Acute rhabdomyolysis following prolonged episodes of immobilization admitted to a monitored bed started on hydration with monitoring of CPK levels 3. Acute kidney injury secondary to 2 on fluids with monitoring of electrolyte consultation was placed to nephrology has been seen by Dr. Foy or his note and recommendations reviewed. Patient kidney function continues to worsen 4. Elevated troponin do suspect probable demand ischemia from patient acute kidney injury 2D echo ordered for EF assessment. Recent echo demonstrated ejection fraction of 75% with no regional wall motion of normalities 5. Acute cystitis: Patient started on Zosyn cultures sent awaiting results 6. Hypertension patient is on lisinopril which was held in view of his impaired kidney function 7. History of occasional alcohol use patient was placed on alcohol withdrawal medical stabilization protocol 8. Hypothyroidism-patient is on levothyroxine home dose continued 9. GERD on PPI 10. Obesity with BMI of 31.5 11. DVT prophylaxis SC heparin Code Visit Inpatient E&M: 36851 Subs Hosp L3
--- NOTE | 2019-01-04 11:51 | PN_ITS ---
Patient Problems: Active and Suspected Problems SAVANNAH (acute kidney injury) (Acute) Rhabdomyolysis (Acute) Fall (Acute) Subjective: no sob/cp no c/o no arm pain - Physical Exam General: Alert, Cooperative HEENT: Atraumatic, Normocephalic Oral: Moist Mucosa Neck: Supple, Trachea Midline Lungs: Clear to auscultation, Normal air movement Cardiovascular: Regular rate, Regular Rhythm, Normal S1, Normal S2 Abdomen: Bowel Sounds Present, Soft, Non Tender, - - obese Extremities: No clubbing, No cyanosis Musculoskeletal: - - tyrone wrap LUE no discharge Neurological: Cranial nerves II-XII grossly intact Psych/Mental Status: Appropriate Vital Signs Temp Pulse Resp BP Pulse Ox 98.3 F 125 H 18 157/81 H 98 01/04/19 09:38 01/04/19 10:59 01/04/19 09:38 01/04/19 09:38 01/04/19 09:38 Oxygen Delivery Method Room Air Weight: 113.4 kg Body Mass Index (BMI) 30.7 Intake and Output for Last 24 Hours 01/02/19 01/03/19 01/04/19 23:59 23:59 23:59 Intake Total 1200 / 2223 5080.6 / 5080.6 340 / 340 Output Total 140 / 140 15 / 15 Balance 1200 / 2223 4940.6 / 4940.6 325 / 325 Laboratory Tests Past 24 Hrs 01/03/19 01/03/19 01/03/19 11:35 12:35 12:35 WBC RBC Hgb Hct MCV MCH MCHC RDW Std Deviation RDW Coeff of Carmita Plt Count MPV Immature Gran % (Auto) Neut % (Auto) Lymph % (Auto) [place] % (Auto) Eos % (Auto) Baso % (Auto) Absolute Neuts (auto) Absolute Lymphs (auto) Nucleated RBC % Sodium Potassium Chloride Carbon Dioxide Anion Gap BUN Creatinine Estim Creat Clear Calc Est GFR (MDRD) Af Amer Est GFR (MDRD) Non-Af BUN/Creatinine Ratio Glucose Lactic Acid 1.7 Calcium Magnesium Total Bilirubin Direct Bilirubin AST ALT Alkaline Phosphatase Total Creatine Kinase Total Protein Albumin Globulin Urine Color Urine Clarity Urine pH Ur Specific [place] Urine Protein Urine Glucose (UA) Urine Ketones Urine Occult Blood Urine Nitrite Urine Bilirubin Urine Urobilinogen Ur Leukocyte Esterase Urine RBC Urine WBC Ur Squamous Epith Cells Urine Bacteria Urine Mucus Acetaminophen 2.6 L Hepatitis A IgM Ab Pending Hep Bs Antigen Pending Hep B Core IgM Ab Pending Hepatitis C Ab (EIA) Pending MRSA (PCR) 01/03/19 01/03/19 01/04/19 13:35 17:34 07:10 WBC RBC Hgb Hct MCV MCH MCHC RDW Std Deviation RDW Coeff of Carmita Plt Count MPV Immature Gran % (Auto) Neut % (Auto) Lymph % (Auto) [place] % (Auto) Eos % (Auto) Baso % (Auto) Absolute Neuts (auto) Absolute Lymphs (auto) Nucleated RBC % Sodium 137 Potassium 5.3 H Chloride 107 Carbon Dioxide 17.0 L Anion Gap 13 BUN 63 H Creatinine 5.30 H Estim Creat Clear Calc 12.98 Est GFR (MDRD) Af Amer 14 L Est GFR (MDRD) Non-Af 11 L BUN/Creatinine Ratio 11.9 Glucose 124 H Lactic Acid Calcium 7.7 L Magnesium Total Bilirubin Direct Bilirubin AST ALT Alkaline Phosphatase Total Creatine Kinase Total Protein Albumin Globulin Urine Color Yellow Urine Clarity Turbid Urine pH 5.0 Ur Specific [place] 1.015 Urine Protein 100 H Urine Glucose (UA) 50 H Urine Ketones 5 H Urine Occult Blood 250 H Urine Nitrite Positive H Urine Bilirubin Negative Urine Urobilinogen Normal Ur Leukocyte Esterase 500 H Urine RBC 0 SEEN Urine WBC >100 SEEN Ur Squamous Epith Cells 0 SEEN Urine Bacteria 0 SEEN Urine Mucus 0 SEEN Acetaminophen Hepatitis A IgM Ab Hep Bs Antigen Hep B Core IgM Ab Hepatitis C Ab (EIA) MRSA (PCR) Negative 01/04/19 01/04/19 08:02 08:02 WBC 14.8 H RBC 3.97 L Hgb 13.3 Hct 39.7 L MCV 100.0 H MCH 33.5 H MCHC 33.5 RDW Std Deviation 44.6 H RDW Coeff of Carmita 12.1 Plt Count 110 L MPV 12.1 H Immature Gran % (Auto) 0.600 Neut % (Auto) 82.5 H Lymph % (Auto) 6.5 L [place] % (Auto) 10.1 H Eos % (Auto) 0.1 Baso % (Auto) 0.2 Absolute Neuts (auto) 12.2 H Absolute Lymphs (auto) 0.96 Nucleated RBC % 0 Sodium Potassium Chloride Carbon Dioxide Anion Gap BUN Creatinine Estim Creat Clear Calc Est GFR (MDRD) Af Amer Est GFR (MDRD) Non-Af BUN/Creatinine Ratio Glucose Lactic Acid Calcium Magnesium 2.6 Total Bilirubin 0.40 Direct Bilirubin 0.11 AST 333 H ALT 49 Alkaline Phosphatase 102 Total Creatine Kinase 5730 H Total Protein 6.0 L Albumin 1.7 L Globulin 4.3 H Urine Color Urine Clarity Urine pH Ur Specific [place] Urine Protein Urine Glucose (UA) Urine Ketones Urine Occult Blood Urine Nitrite Urine Bilirubin Urine Urobilinogen Ur Leukocyte Esterase Urine RBC Urine WBC Ur Squamous Epith Cells Urine Bacteria Urine Mucus Acetaminophen Hepatitis A IgM Ab Hep Bs Antigen Hep B Core IgM Ab Hepatitis C Ab (EIA) MRSA (PCR) Medical Necessity - Tobacco Use Smoking Status: Never smoker Assessment/Plan All Active Problems SAVANNAH (acute kidney injury) (Acute) Rhabdomyolysis (Acute) Fall (Acute) Acute kidney injury pigment induced Metabolic acidosis Hyperkalemia Rhabdomyolysis The patient is virtually anuric with rising potassium and worsening metabolic acidosis so we will initiate dialysis. I discussed with the patient and his over the phone about major risks of dialysis including but not limited to infection seizures heart attack strokes worsening renal function.The floor MELVA Mi was witness to the conversation over the phone with his for . We will get Lauren Edwards nurse practitioner to place temporary dialysis catheter. The patient seems to be clinically euvolemic CK improving except one outlier his blood pressure is within normal range Avoid nephrotoxins
--- NOTE | 2019-01-04 12:09 | US_ITS ---
STUDY: RENAL ULTRASOUND - COMPLETE REASON FOR EXAM: Male, 78 years old. Acute kidney injury TECHNIQUE: Ultrasound evaluation of the kidneys was performed with real-time and static rivera-scale imaging. COMPARISON: None. FINDINGS: RIGHT KIDNEY: Normal location of the right kidney, which is normal in size. The right kidney measures 11.5 x 4.7 x 4.6 cm. There is a normal cortex of the right kidney. The renal cortex measures 1.6 cm. There is no right renal mass or cyst. There are no right renal calculi. There is no right hydronephrosis. DISTAL RIGHT URETER: There is non-visualization of the distal right ureter. LEFT KIDNEY: Normal location of the left kidney, which is normal in size. The left kidney measures 12.0 x 5.3 x 6.0 cm. There is a normal cortex of the left kidney. The renal cortex measures 1.5 cm. There is no left renal mass or cyst. There are no left renal calculi. There is no left hydronephrosis. DISTAL LEFT URETER: There is non-visualization of the distal left ureter. BLADDER: The urinary bladder is not distended for evaluation. US/Kidney and Bladder IMPRESSION: Normal ultrasound of the kidneys. Nondistended urinary bladder. Electronically Signed: Juancarlos Henriquez DO at 21:33 EDT Tel [phone], Service support ,
[2019-01-04 13:02] LABS: International Normalized Ratio 1.1; Partial Thromboplast Time 22.6 Seconds (24.1-36.2); Prothrombin Time (Protime)PT. 14.1 SECONDS (11.7-14.9)
[2019-01-04] MEDS: Heparin 10,000 UNITS/10 ML Vial 1000 UNITS IV (14:10)
--- NOTE | 2019-01-04 14:12 | RAD_ITS ---
STUDY: X-RAY CHEST REASON FOR EXAM: Male, 78 years old. Temporary dialysis catheter placement. TECHNIQUE: Single AP portable view of the chest. COMPARISON: Comparison is made with prior examination dated January 02, 2019. FINDINGS: A right-sided temporary vas catheter has been placed. The tip is at the junction of the superior vena cava and right atrium. EKG electrodes are present. Stable mild increased markings at the left lung base suggests scarring. There is no demonstrated pleural abnormality. Normal size heart. Normal mediastinum and cl. Normal visualized pulmonary arteries. There is atherosclerotic calcification of the aortic arch with tortuosity. Normal visualized thoracic spine. Normal visualized ribs, clavicles, and shoulders. Surgical clips are seen in the right upper quadrant most likely secondary to prior cholecystectomy. RAD/CXR for Line Placement IMPRESSION: The tip of the temporary right sided dialysis catheter is at the junction of the superior vena cava and right atrium. The remainder of the examination is unchanged. Electronically Signed: Vijay Cox, at 15:09 EDT , Service support ,
--- NOTE | 2019-01-04 15:06 | PCM.OPRPT ---
Report of Operation Date of Procedure: 01/04/19 Surgery/Procedure Performed:: Dialysis catheter placement Description of Surgical Findings:: Dialysis catheter placement procedure note Indication: Hemodialysis Procedure: A time-out was completed to verify correct patient, indication, medication allergies, procedure, coagulation studies, informed consent signed, and equipment needed. The patient was placed in the supine position for a central line placement to the rt IJ vein. The patients rt neck was prepped using chlorhexidine and a full body sterile drape was applied. 1% lidocaine was used to anesthetize the surrounding skin. A 12 fr 16 cm Mahurkar catheter introduced into the internal jugular vein using the modified Seldinger technique with the assistance of ultrasound. The catheter was threaded smoothly over the guidewire, the guidewire was removed easily, nonpulsatile blood returned. All ports were aspirated of air and flushed with sterile saline, and locked with U 1000 heparin 1.3 mL's to each port. The catheter was sutured in place and covered with an occlusive dressing impregnated with chlorhexidine. Post-procedure: The patient tolerated the procedure well. Vital signs remained stable. EBL 5 cc. No complications. Chest X Ray ordered to confirm tip placement and the absence of pneumothorax. Code Visit Procedures: 00389 Insert Non-tunnel CV Cath
[2019-01-04 15:23] LABS: Hep C Antibodies <0.1 s/co ratio (0.0-0.9)
[2019-01-04 15:30] LABS: Pathologist Review Reviewed
--- NOTE | 2019-01-04 19:17 | DIALYSIS ---
Hemodialysis x 2 hours with 2K bath; Tolerated well. Ran EVEN. RIJ CVC capped & locked with heparin per lumen fill volume. Report given.
[2019-01-05] VITALS (18 sets, daily range): BP systolic 89–119; BP diastolic 46–86; PULSE 90–125; RESP 16–20; TEMP 36.6–37.9; O2SAT 94–100; BMI 30.7
[2019-01-05] MEDS: oxyCODONE 5 MG Tablet PO ×3 (02:24→23:26)
--- NOTE | 2019-01-05 05:55 | EKG12_ITS ---
Test Reason : AM EKG Blood Pressure : / mmHG Vent. Rate : 114 BPM Atrial Rate : 150 BPM P-R Int : 000 ms QRS Dur : 076 ms QT Int : 338 ms P-R-T Axes : 000 021 081 degrees QTc Int : 465 ms Atrial fibrillation with rapid ventricular response Nonspecific T wave abnormality Abnormal ECG Confirmed by AIDA SMITH, RASHIDA ([id number]), online content editor PARESH PEREIRA ([id number]) on 01/10/2019 2:27:52 PM Referred By: Ricardo Jonas Confirmed By:RASHIDA PARRA MD
[2019-01-05 06:24] LABS: Absolute Lymphocyte Count 1.13 X10^3/uL (0.83-4.51); Absolute Neutrophil Count 9.2 X10^3/uL (2.0-7.7); Basophil# 0.01 X10^3/uL; Basophil% 0.1 % (0-1); Eosinophil# 0.03 X10^3/uL; Eosinophils% 0.3 % (0-5); Hematocrit 35.7 % (40-54); Hemoglobin 12.1 g/dL (13.0-16.5); Lymphocyte # 1.13 X10^3/ul (4.0); Lymphocyte % 9.6 % (19-41); Mean Corp Hgb Conc 33.9 g/dL (32-36); Mean Corpuscular Hgb 33.4 pg (27.0-32.0); Mean Corpuscular Volume 98.6 fL (80-94); Mean Platelet Vol. 11.3 fl (6.2-12.0); Monocyte# 1.23 X10^3/uL; Monocyte% 10.5 % (0-10); NRBC Flagged by Analyzer 0 % (0-5); Neutrophil # 9.24 X10^3/uL (2.7-7.7); Neutrophil % 78.6 % (47-70); Platelet Count 187 K/mm3 (150-450); RBC Distribution Width CV 11.9 % (11.6-14.6); RBC Distribution Width SD 43.5 fl (35.1-43.9); Red Blood Count 3.62 M/mm3 (4.6-6.2); White Blood Count 11.7 K/mm3 (4.4-11.0)
[2019-01-05 06:46] LABS: International Normalized Ratio 1.2; Prothrombin Time (Protime)PT. 15.4 SECONDS (11.7-14.9)
[2019-01-05 06:47] LABS: Partial Thromboplast Time 33.5 Seconds (24.1-36.2)
[2019-01-05 07:09] LABS: AST(SGOT) 218 U/L (15-37); Alanine Aminotransfer ALT/SGPT 23 U/L (16-61); Albumin, Serum 1.6 g/dL (3.2-5.0); Alkaline Phosphatase 110 U/L (45-117); Anion Gap 13 (5-15); BUN 57 mg/dL (7-18); BUN/Creat Ratio 10.3 RATIO (10-20); Bilirubin, Direct 0.26 mg/dL (0.00-0.30); CPK Total, Creatine Kinase 3137 U/L (39-308); Calcium,Total 7.8 mg/dL (8.5-10.1); Chloride 104 mmol/L (98-107); Creatinine, Serum 5.53 mg/dL (0.70-1.30); EST Glomerular Filtration Rate 11 mL/min (>60); Est Glom Filt Rate - Afr Amer 13 mL/min (>60); Estimated Creatinine Clearance 12.44 ml/min; Globulin 3.9 g/dL (2.2-4.2); Glucose 112 mg/dL (74-106); Magnesium 2.5 mg/dL (1.6-2.6); Potassium 4.7 mmol/L (3.5-5.1); Protein, Total 5.5 g/dL (6.4-8.2); Sodium Level 137 mmol/L (136-145)
--- NOTE | 2019-01-05 07:26 | PCM.PN.PUL ---
Patient Problems: Active and Suspected Problems SAVANNAH (acute kidney injury) (Acute) Rhabdomyolysis (Acute) Fall (Acute) Subjective: The patient was seen and examined at the bedside this morning. Events from the last 24 hours have been reviewed. The patient is currently afebrile, hemodynamically stable and maintaining appropriate oxygen saturations on room air. The patient tolerated hemodialysis yesterday. He was kept overall even from a volume status. The patient is currently documented to be overall net +6.8 L for the admission. Transaminase levels continue to improve. CK continues to improve. Objective: The patient's most recent lab work, culture data and imaging studies have all been personally reviewed. Surface echocardiogram revealed normal LV size and thickness with an ejection fraction of 75%. RV was normal in size and thickness. Right ventricular systolic pressure was estimated to be 30 mmHg. There was mild aortic stenosis. Blood cultures have been negative to date. 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 - Physical Exam General: Cooperative, No apparent distress HEENT: Atraumatic, PERRLA, Normocephalic Oral: Moist Mucosa Neck: Supple, No Nodes, Trachea Midline, - - Right IJ temporary hemodialysis catheter in place Lungs: Normal air movement, No rhonchi, No wheeze, No rales Cardiovascular: Regular rate, Normal S1, Normal S2 Abdomen: Bowel Sounds Present, Soft, Non Tender Extremities: No clubbing, No cyanosis, Edema - RUE Skin: - - No significant change from previous Musculoskeletal: No Muscle Wasting Lymphatic: No Cervical, Supraclavicular, or Inguinal Adenopathy Neurological: Cranial nerves II-XII grossly intact, Neuro grossly intact Psych/Mental Status: Normal Affect Vital Signs Temp Pulse Resp BP Pulse Ox 98.6 F 103 H 18 93/62 94 01/05/19 06:00 01/05/19 06:00 01/05/19 06:00 01/05/19 06:00 01/05/19 06:00 Oxygen Delivery Method Room Air Weight: 256 lb 9.889 oz Body Mass Index (BMI) 30.7 Intake and Output for Last 24 Hours 01/03/19 01/04/19 01/05/19 23:59 23:59 23:59 Intake Total 5080.6 / 5080.6 470 / 788.3 404.3 / 404.3 Output Total 140 / 140 125 / 155 65 / 65 Balance 4940.6 / 4940.6 345 / 633.3 339.3 / 339.3 Microbiology Past 72 Hours 01/03/19 17:34 Urine Culture - Preliminary Urine Catheter - Spencer 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7 L Magnesium Total Bilirubin Direct Bilirubin AST ALT Alkaline Phosphatase Total Creatine Kinase Total Protein Albumin Globulin Hepatitis A IgM Ab Negative Hep Bs Antigen Negative Hep Bs Antibody Hep B Core Total Ab Hep B Core IgM Ab Negative Hepatitis C Ab (EIA) <0.1 01/04/19 01/04/19 01/04/19 08:02 08:02 12:35 WBC 14.8 H RBC 3.97 L Hgb 13.3 Hct 39.7 L MCV 100.0 H MCH 33.5 H MCHC 33.5 RDW Std Deviation 44.6 H RDW Coeff of Carmita 12.1 Plt Count 110 L MPV 12.1 H Immature Gran % (Auto) 0.600 Neut % (Auto) 82.5 H Lymph % (Auto) 6.5 L [place] % (Auto) 10.1 H Eos % (Auto) 0.1 Baso % (Auto) 0.2 Absolute Neuts (auto) 12.2 H Absolute Lymphs (auto) 0.96 Nucleated RBC % 0 Diff Path Review PT 14.1 INR 1.1 APTT 22.6 L Sodium Potassium Chloride Carbon Dioxide Anion Gap BUN Creatinine Estim Creat Clear Calc Est GFR (MDRD) Af Amer Est GFR (MDRD) Non-Af BUN/Creatinine Ratio Glucose Calcium Magnesium 2.6 Total Bilirubin 0.40 Direct Bilirubin 0.11 AST 333 H ALT 49 Alkaline Phosphatase 102 Total Creatine Kinase 5730 H Total Protein 6.0 L Albumin 1.7 L Globulin 4.3 H Hepatitis A IgM Ab Hep Bs Antigen Hep Bs Antibody Hep B Core Total Ab Hep B Core IgM Ab Hepatitis C Ab (EIA) 01/04/19 01/04/19 01/05/19 18:10 18:10 05:57 WBC 11.7 H RBC 3.62 L Hgb 12.1 L Hct 35.7 L MCV 98.6 H MCH 33.4 H MCHC 33.9 RDW Std Deviation 43.5 RDW Coeff of Carmita 11.9 Plt Count 187 MPV 11.3 Immature Gran % (Auto) 0.900 Neut % (Auto) 78.6 H Lymph % (Auto) 9.6 L [place] % (Auto) 10.5 H Eos % (Auto) 0.3 Baso % (Auto) 0.1 Absolute Neuts (auto) 9.2 H Absolute Lymphs (auto) 1.13 Nucleated RBC % 0 Diff Path Review PT INR APTT Sodium Potassium Chloride Carbon Dioxide Anion Gap BUN Creatinine Estim Creat Clear Calc Est GFR (MDRD) Af Amer Est GFR (MDRD) Non-Af BUN/Creatinine Ratio Glucose Calcium Magnesium Total Bilirubin Direct Bilirubin AST ALT Alkaline Phosphatase Total Creatine Kinase Total Protein Albumin Globulin Hepatitis A IgM Ab Hep Bs Antigen Pending Hep Bs Antibody Pending Hep B Core Total Ab Pending Hep B Core IgM Ab Hepatitis C Ab (EIA) 01/05/19 01/05/19 05:57 05:57 WBC RBC Hgb Hct MCV MCH MCHC RDW Std Deviation RDW Coeff of Carmita Plt Count MPV Immature Gran % (Auto) Neut % (Auto) Lymph % (Auto) [place] % (Auto) Eos % (Auto) Baso % (Auto) Absolute Neuts (auto) Absolute Lymphs (auto) Nucleated RBC % Diff Path Review PT 15.4 H INR 1.2 APTT 33.5 Sodium 137 Potassium 4.7 Chloride 104 Carbon Dioxide 20.0 L Anion Gap 13 BUN 57 H Creatinine 5.53 H Estim Creat Clear Calc 12.44 Est GFR (MDRD) Af Amer 13 L Est GFR (MDRD) Non-Af 11 L BUN/Creatinine Ratio 10.3 Glucose 112 H Calcium 7.8 L Magnesium 2.5 Total Bilirubin 0.50 Direct Bilirubin 0.26 AST 218 H ALT 23 Alkaline Phosphatase 110 Total Creatine Kinase 3137 H Total Protein 5.5 L Albumin 1.6 L Globulin 3.9 Hepatitis A IgM Ab Hep Bs Antigen Hep Bs Antibody Hep B Core Total Ab Hep B Core IgM Ab Hepatitis C Ab (EIA) Clinical Impression(s) from Imaging Studies Brain CT 01/02/19 11:26 IMPRESSION: Chronic involutional changes of the brain. Electronically Signed: Marcos Madrid MD at 12:22 EDT , Service support , Cervical Spine CT 01/02/19 11:27 IMPRESSION: Multilevel degenerative changes, as described above. Findings most pronounced at C3-4. No fracture or suspicious osseous lesion Electronically Signed: Marcos Madrid MD at 12:23 EDT , Service support , Forearm X-Ray 01/02/19 11:27 IMPRESSION: Normal x-ray examination of the radius and ulna. Electronically Signed: Marcos Madrid MD at 12:44 EDT , Service support , Hand X-Ray 01/02/19 11:27 IMPRESSION: Demineralization of the osseous structures with polyarticular arthrosis, most notably at the base of the thumb. No demonstrated fracture or suspicious osseous lesion Electronically Signed: Marcos Madrid MD at 12:43 EDT , Service support , Chest X-Ray 01/02/19 12:05 IMPRESSION: Degenerative changes, as described above. No demonstrated acute cardiopulmonary process. No interval change Electronically Signed: Marcos Madrid MD at 12:44 EDT , Service support , Renal Ultrasound 01/04/19 12:09 IMPRESSION: Normal ultrasound of the kidneys. Nondistended urinary bladder. Electronically Signed: Juancarlos Henriquez, DO at 21:33 EDT Tel [phone], Service support , Chest X-Ray 01/04/19 14:12 IMPRESSION: The tip of the temporary right sided dialysis catheter is at the junction of the superior vena cava and right atrium. The remainder of the examination is unchanged. Electronically Signed: Vijay Weinsteinsalvador, at 15:09 EDT , Service support , Medical Necessity - Tobacco Use Smoking Status: Never smoker Assessment/Plan All Active Problems SAVANNAH (acute kidney injury) (Acute) Rhabdomyolysis (Acute) Fall (Acute) RECOMMENDATIONS: 1. Continue antibiotics. 2. Additional surgical intervention per orthopedics. 3. Continue local wound care and pain control regimen. 4. Encourage incentive spirometer use and mobilize patient as tolerated. 5. Continue hemodialysis support per nephrology recommendations. IMPRESSIONS: 1. Distal left upper extremity compartment syndrome following mechanical fall, now POD #3 s/p fasciotomy The patient was taken to the OR on the evening of January 02 and underwent fasciotomy. For now, we will continue local wound care and pain control regimen. Defer further operative management to orthopedic surgery. 2. Acute kidney injury/rhabdomyolysis Nephrology is currently following. The patient was started on hemodialysis on January 04. Continue current supportive measures per recommendations. 3. Troponin elevation Secondary to demand ischemia in the setting of the patient's acute presentation. Echocardiogram revealed preserved ejection fraction without wall motion abnormalities. 4. E. coli cystitis Although sepsis was not initially considered on presentation to the hospital, the patient did develop a low-grade fevers. Antibiotics were subsequently initiated and further work-up indicated the presence of E. coli cystitis. 5. History of alcohol dependency/neuropathy/hypothyroidism/hypertension/GERD Complicates care, management, recovery and prognosis. Continue to monitor for signs of alcohol withdrawal. Continue thiamine and folate repletion. Physical therapy to continue to work with patient. This note was generated with DueDilation software. It may contain incorrect words, spelling, and punctuation that were not noted in checking the note before signing. DISPOSITION: As the patient is without further ICU/pulmonary needs, will sign off. Please call with any additional questions. Code Visit Inpatient E&M: 89155 Subs Hosp L2
--- NOTE | 2019-01-05 08:05 | PN_ITS ---
Patient Problems: Active and Suspected Problems SAVANNAH (acute kidney injury) (Acute) Rhabdomyolysis (Acute) Fall (Acute) Subjective: Patient had temporary dialysis catheter placed on 01/04/2019 with initiation of dialysis. He went into A. fib with RVR during the evening. Patient was also noted to have significant swelling involving the right arm at the insertion of his midline Objective: GENERAL: cooperative HEENT: Atraumatic; EYES; Anicteric, Normal Conjunctiva NECK; supple, normal thyroid, RESPIRATORY: Diminished to auscultation CARDIOVASCULAR: Regular S1 S2, GI: soft, non-tender, normoactive bowel sounds, : No Renal angle tenderness; EXTREMITIES: Left upper extremity surgical dressing; significant swelling right arm at the insertion of midline MUSCULOSKELETAL: no muscle waisting NEURO: Awake; no lateralizing signs. 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 Laboratory Results 01/03/19 04:35: Diff Path Review Reviewed 01/03/19 12:35: Hepatitis A IgM Ab Negative, Hep Bs Antigen Negative, Hep B Core IgM Ab Negative, Hepatitis C Ab (EIA) <0.1 01/04/19 07:10: Sodium 137, Potassium 5.3 H, Chloride 107, Carbon Dioxide 17.0 L , Anion Gap 13, BUN 63 H, Creatinine 5.30 H, Estim Creat Clear Calc 12.98, Est GFR (MDRD) Af Amer 14 L, Est GFR (MDRD) Non-Af 11 L, BUN/Creatinine Ratio 11.9, Glucose 124 H, Calcium 7.7 L 01/04/19 08:02: WBC 14.8 H, RBC 3.97 L, Hgb 13.3, Hct 39.7 L, MCV 100.0 H, MCH 33.5 H, MCHC 33.5, RDW Std Deviation 44.6 H, RDW Coeff of Carmita 12.1, Plt Count 110 L, MPV 12.1 H, Immature Gran % (Auto) 0.600, Neut % (Auto) 82.5 H, Lymph % (Auto) 6.5 L, [place] % (Auto) 10.1 H, Eos % (Auto) 0.1, Baso % (Auto) 0.2, Absolute Neuts (auto) 12.2 H, Absolute Lymphs (auto) 0.96, Nucleated RBC % 0 01/04/19 08:02: Magnesium 2.6, Total Bilirubin 0.40, Direct Bilirubin 0.11, AST 333 H, ALT 49, Alkaline Phosphatase 102, Total Creatine Kinase 5730 H, Total Protein 6.0 L, Albumin 1.7 L, Globulin 4.3 H 01/04/19 12:35: PT 14.1, INR 1.1, APTT 22.6 L 01/04/19 18:10: Hep Bs Antibody Pending, Hep B Core Total Ab Pending 01/04/19 18:10: Hep Bs Antigen Pending 01/05/19 05:57: WBC 11.7 H, RBC 3.62 L, Hgb 12.1 L, Hct 35.7 L, MCV 98.6 H, MCH 33.4 H, MCHC 33.9, RDW Std Deviation 43.5, RDW Coeff of Carmita 11.9, Plt Count 187, MPV 11.3, Immature Gran % (Auto) 0.900, Neut % (Auto) 78.6 H, Lymph % (Auto) 9.6 L, [place] % (Auto) 10.5 H, Eos % (Auto) 0.3, Baso % (Auto) 0.1, Absolute Neuts (auto) 9.2 H, Absolute Lymphs (auto) 1.13, Nucleated RBC % 0 01/05/19 05:57: Sodium 137, Potassium 4.7, Chloride 104, Carbon Dioxide 20.0 L, Anion Gap 13, BUN 57 H, Creatinine 5.53 H, Estim Creat Clear Calc 12.44, Est GFR (MDRD) Af Amer 13 L, Est GFR (MDRD) Non-Af 11 L, BUN/Creatinine Ratio 10.3, Glucose 112 H, Calcium 7.8 L, Magnesium 2.5, Total Bilirubin 0.50, Direct Bilirubin 0.26, AST 218 H, ALT 23, Alkaline Phosphatase 110, Total Creatine Kinase 3137 H, Total Protein 5.5 L, Albumin 1.6 L, Globulin 3.9 01/05/19 05:57: PT 15.4 H, INR 1.2, APTT 33.5 Current Medications Al Hydroxide/Mg Hydroxide (Mylanta Ii) 30 ml PO Q6H PRN PRN PRN Reason: Gastric Burning Albuterol Sulfate (Ventolin Aerosols) 2.5 mg INHALATION Q2H PRN PRN PRN Reason: SOB/Wheezing Chlorhexidine Gluconate () 1 each TOPICAL DAILY PENDING SALE TO [facility] Last Admin: 01/04/19 07:49 Dose: Not Given Documented by: Cyanocobalamin (Vitamin B12) 1,000 mcg PO DAILYCM PENDING SALE TO [facility] Last Admin: 01/04/19 07:45 Dose: 1,000 mcg Documented by: Guaifenesin (Robitussin) 20 ml PO Q4H PRN PRN PRN Reason: COUGH Heparin Sodium (Porcine) (Heparin Na) 5,000 unit SC Q12 PENDING SALE TO [facility] Last Admin: 01/04/19 21:55 Dose: 5,000 unit Documented by: Piperacillin Sod/Tazobactam (Sod 3.375 gm/ Sodium Chloride) 50 mls @ 12.5 mls/hr IV Q12 PENDING SALE TO [facility] Last Admin: 01/04/19 21:55 Dose: 12.5 mls/hr Documented by: Sodium Chloride () 250 mls @ 15 mls/hr IV .[id number] PRN PRN Reason: SALINE FLUSH Last Admin: 01/03/19 11:36 Dose: 15 mls/hr Documented by: Levothyroxine Sodium (Synthroid) 125 mcg PO DAILY@0600 PENDING SALE TO [facility] Last Admin: 01/05/19 06:12 Dose: Not Given Documented by: Loperamide HCl (Imodium) 2 - 4 mg PO UD PRN PRN Reason: LOOSE STOOLS Loratadine (Claritin) 10 mg PO DAILY PENDING SALE TO [facility] Last Admin: 01/04/19 09:58 Dose: 10 mg Documented by: Lorazepam (Ativan) 1 mg IV Q4H PRN PRN PRN Reason: Severe Anxiety Lorazepam (Ativan) 2 mg IV X1 PRN PRN Reason: Seizure Lorazepam (Ativan) 1 mg PO Q8H PENDING SALE TO [facility]; Taper Stop: 01/05/19 21:29 Last Admin: 01/05/19 05:34 Dose: Not Given Documented by: Multivitamins ([facility]ivitamin) [facility] Last Admin: 01/04/19 07:46 Dose: 1 tablet Documented by: Nutritional Formula (Lactose Free) (Ensure Enlive) 120 ml PO 4X/DAY PENDING SALE TO [facility] Last Admin: 01/04/19 21:55 Dose: 120 ml Documented by: Ondansetron HCl (Zofran) 4 mg IV Q8H PRN PRN PRN Reason: NAUSEA/VOMITING Ondansetron HCl (Zofran Odt) 4 mg PO Q6H PRN PRN PRN Reason: NAUSEA Oxycodone HCl (Oxyir) 5 mg PO Q4H PRN PRN PRN Reason: Moderate Pain (4-6/10) Last Admin: 01/05/19 02:24 Dose: 5 mg Documented by: Pantoprazole Sodium (Protonix) 40 mg PO DAILY PENDING SALE TO [facility] Last Admin: 01/04/19 09:58 Dose: 40 mg Documented by: Promethazine HCl (Phenergan) 25 mg IM Q6H PRN PRN PRN Reason: Breakthrough Nausea/Vomiting Psyllium Hydrophilic Mucilloid (Metamucil) 1 packet PO DAILY PRN PRN PRN Reason: Constipation Last Admin: 01/04/19 07:45 Dose: 1 packet Documented by: Senna (Senokot) 1 tablet PO QHS PRN PRN PRN Reason: Constipation Sodium Chloride () 10 - 40 ml IV UD PRN PRN Reason: SALINE FLUSH Last Admin: 01/04/19 06:44 Dose: 30 ml Documented by: Sodium Chloride () 10 - 40 ml IV UD PRN PRN Reason: Midline Flush Medical Necessity - Tobacco Use Smoking Status: Never smoker Assessment/Plan All Active Problems SAVANNAH (acute kidney injury) (Acute) Rhabdomyolysis (Acute) Fall (Acute) Patient is a 78-year-old gentleman who was admitted following a crush injury between his bed and wall with prolonged immobilization of 12 hours duration brought to the emergency department patient was found to have acute rhabdomyolysis with acute kidney injury. He was subsequently determined to have compartment syndrome consult was placed to orthopedic surgery seen by Dr. Archer who did take patient to OR for fasciotomy 1. Acute mechanical fall with significantly left upper extremity swelling consistent with compartment syndrome. Consult was placed orthopedic surgery patient underwent fasciotomy on 01/02/2019. ~01/04/2019: Plan is for patient undergo secondary closure on 01/05/2019 ~01/05/2019 patient to undergo secondary closure Case discussed with Dr. Rhodes 2. Acute rhabdomyolysis following prolonged episodes of immobilization admitted to a monitored bed started on hydration with monitoring of CPK levels 3. Acute kidney injury secondary to 2 on fluids with monitoring of electrolyte consultation was placed to nephrology has been seen by Dr. Foy or his note and recommendations reviewed. Patient kidney function continues to worsen ~01/05/2019: The patient had temporary dialysis catheter placed on 01/04/2019 with initiation of dialysis 4. New onset atrial fibrillation rate relatively controlled do suspect this to be related to patient chronic alcohol use 5. Acute cystitis: Patient started on Zosyn cultures sent awaiting results 6. Hypertension patient is on lisinopril which was held in view of his impaired kidney function 7. Elevated troponin do suspect probable demand ischemia from patient acute kidney injury 2D echo ordered for EF assessment. Recent echo demonstrated ejection fraction of 75% with no regional wall motion of normalities 8. History of occasional alcohol use patient was placed on alcohol withdrawal medical stabilization protocol 9. Hypothyroidism-patient is on levothyroxine home dose continued 10. GERD on PPI 11. Obesity with BMI of 31.5 12. Right arm swelling at the insertion of patient PICC line site. Ordered venous duplex to rule out DVT 13. DVT prophylaxis SC heparin Code Visit Inpatient E&M: [id number] [facility] Hosp L3
[2019-01-05 09:37] LABS: Hepatitis B Surface Antigen Non-Reactive (Nonreactive)
--- NOTE | 2019-01-05 09:51 | VDUE_ITS ---
Reason For Study: Swelling Right Proximal IJV not visualized due to IV Catheter. Right subclavian vein is spontaneous, widely patent, phasic, with no intraluminal echogenicity noted. Right Lower Arm Right radial vein is compressible. Right ulnar vein is compressible. Right Arm Right axillary vein is spontaneous, patent, phasic, competent, compressible and demonstrates augmentation. Right brachial vein is compressible. Right cephalic vein is compressible. Right basilic vein is compressible. Patient Safety Prelim to PCU. Interpretation Summary Deep veins of the right upper extremity are patent and compressible segmentally. There is no evidence of deep vein thrombosis. The superficial veins of the right upper extremity, the basilic and cephalic veins, are patent and compressible. There is no evidence of right upper extremity superficial thrombophlebitis involving the veins imaged. The right internal jugular vein was not visualized due to the presence of an intravenous catheter. Ordering Physician: Ricardo Jonas Performed By: Radha Dia RVT ?
--- NOTE | 2019-01-05 10:18 | DIALYSIS ---
Tx cancelled today per Dr. Frias d/t patient having surgery. Next HD scheduled for Sat Jan 06 in AM. Report given to MELVA Warner.
--- NOTE | 2019-01-05 12:30 | PCM.OPRPT ---
Report of Operation Date of Procedure: 01/05/19 Description of Surgical Findings:: Preoperative diagnosis: Left forearm compartment syndrome status post fasciotomy Postoperative diagnosis: Same Procedure: Open irrigation and debridement of wound with wound VAC placement Anesthesia: General EBL: 10 Complications: None Condition: Stable to PACU Indication for procedure: 78-year-old male patient alcoholic fell and got stuck under a mattress with his arm beneath him he is heavyset and was stuck this way for over 12 hours with a delayed presentation to healthcare. Upon evaluation patient had no motor or sensation below the elbow. He did have elevated compartment pressure in the volar compartment of the forearm and an urgent fasciotomy was performed. Wound was closed. Patient has developed severe renal failure. Was medically optimized for repeat washout and debridement. 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 risk benefits and alternatives were reviewed including risk of bleeding infection nerve, artery, bone, tissue damage, blood clot need for further surgery and continued pain. Procedure: Patient was met in the preoperative holding area once again the operative extremity was identified by both patient physician and patient was brought back to the operating room anesthesia was started he was positioned on the operating room table in the supine position. Once again his arm was evaluated compartments in the arm anterior and posterior remained soft in the dorsal forearm and hand compartments were supple. His pulse had improved to 2+. With capillary refill near normal. However he still had no motor and sensation. Patient was prepped and draped in the usual sterile fashion and a timeout was called to ensure the proper patient procedure and extremity are being contemplated. The previous vessel loop cross-stitch closure was removed and the wound was thoroughly irrigated with several liters of irrigation and an iricept wash the wound was not able to be closed and there was significant blistering throughout the arm. The muscle tissue still seemed viable, there was bleeding tissue. There and it did not appear to be any areas of necrosis. Wound VAC was applied. Patient tolerated the procedure. Wound VAC nurse was consulted for VAC changes Tuesday. Dr. Juarez plastic surgery was also consulted for wound care.
--- NOTE | 2019-01-05 13:42 | CASEMGMT ---
Addendum entered by Radha Kim 01/05/19 13:49: [facility] is also in-network with pt's insurance. Bunny FRYE CM Original Note: According to the [facility] website, the following are in-network tertiary facilities: [place], [facility], [facility] and . Bunny FRYE CM
[2019-01-05] MEDS: Heparin Injection (Vial) 5,000 UNIT/ML VIAL 5000 UNIT SC (23:05)
--- NOTE | 2019-01-05 23:55 | CON.PCM_ITS ---
Reason for Consult Date of Consultation: 01/05/19 Reason for Consultation: Fasciotomy wound left forearm with compromised skin from pressure injury. REFERRING PHYSICIAN: Dr. Archer. MOSAIC TECHNICIAN: Dr. Juarez. History of Present Illness: The patient is a 78 year old M who was brought to the emergency department on 01/02/19 by his following a fall at home. Patient states he fell in his bedroom and was stuck in between the wall and his bed. He laid down for over 12 hours. Patient developed significant swelling involving the left upper extremities. In the ED patient was found to have acute kidney injury with rhabdomyolysis. His WBC was 23.8. His Total Creatine Kinase was 22,797. His Lactate was 5.3. He was started on IV antibiotics with Zosyn. It was noted he had severe compromise with blistering to his skin of his left upper extremity involving the entire extremity as well as a compartment syndrome. Orthopedic Surgery urgently took the patient to surgery the same day for a fasciotomy. The patient also went back to surgery today for another operative debridement and washout of his wound. A VAC was placed. I was asked to evaluate this patient for further wound care and for surgical options for his severe skin compromise and for eventual wound closure. He is currently getting dialysis for his acute kidney injury. Past Medical History Past Medical History (Chronic Problems): Chronic Problems Hypertension (Chronic) Esophageal stricture (Chronic) GERD (gastroesophageal reflux disease) (Chronic) Osteoarthritis (Chronic) Hypothyroid (Chronic) Hyperlipidemia (Chronic) Allergies rosuvastatin calcium [From Crestor] Allergy (Verified 01/02/19 14:42) Unknown pt unsure niacin [From Niaspan Extended-Release] Adverse Reaction (Verified 01/02/19 14:42) Unknown pt unsure Current Medications Al Hydroxide/Mg Hydroxide (Mylanta Ii) 30 ml PO Q6H PRN PRN PRN Reason: Gastric Burning Albuterol Sulfate (Ventolin Aerosols) 2.5 mg INHALATION Q2H PRN PRN PRN Reason: SOB/Wheezing Cyanocobalamin (Vitamin B12) 1,000 mcg PO DAILYCM [facility] Last Admin: 01/05/19 10:36 Dose: Not Given Documented by: Guaifenesin (Robitussin) 20 ml PO Q4H PRN PRN PRN Reason: COUGH Heparin Sodium (Porcine) (Heparin Na) 5,000 unit SC Q12 [facility] Last Admin: 01/05/19 23:05 Dose: 5,000 unit Documented by: Piperacillin Sod/Tazobactam (Sod 3.375 gm/ Sodium Chloride) 50 mls @ 12.5 ml s/hr IV Q12 [facility] Last Admin: 01/05/19 23:05 Dose: 12.5 mls/hr Documented by: Sodium Chloride () 250 mls @ 15 mls/hr IV .[id number] PRN PRN Reason: SALINE FLUSH Last Admin: 01/03/19 11:36 Dose: 15 mls/hr Documented by: Levothyroxine Sodium (Synthroid) 125 mcg PO DAILY@0600 [facility] Last Admin: 01/05/19 06:12 Dose: Not Given Documented by: Loperamide HCl (Imodium) 2 - 4 mg PO UD PRN PRN Reason: LOOSE STOOLS Loratadine (Claritin) 10 mg PO DAILY [facility] Last Admin: 01/05/19 10:36 Dose: Not Given Documented by: Lorazepam (Ativan) 1 mg IV Q4H PRN PRN PRN Reason: Severe Anxiety Lorazepam (Ativan) 2 mg IV X1 PRN PRN Reason: Seizure Multivitamins (Multivitamin) 1 tablet PO DAILYCM [facility] Last Admin: 01/05/19 10:36 Dose: Not Given Documented by: Nutritional Formula (Lactose Free) (Ensure Enlive) 120 ml PO 4X/DAY [facility] Last Admin: 01/05/19 23:07 Dose: 120 ml Documented by: Ondansetron HCl (Zofran) 4 mg IV Q8H PRN PRN PRN Reason: NAUSEA/VOMITING Ondansetron HCl (Zofran Odt) 4 mg PO Q6H PRN PRN PRN Reason: NAUSEA Oxycodone HCl (Oxyir) 5 mg PO Q4H PRN PRN PRN Reason: Moderate Pain (4-6/10) Last Admin: 01/05/19 23:26 Dose: 5 mg Documented by: Pantoprazole Sodium (Protonix) 40 mg PO DAILY [facility] Last Admin: 01/05/19 10:36 Dose: Not Given Documented by: Promethazine HCl (Phenergan) 25 mg IM Q6H PRN PRN PRN Reason: Breakthrough Nausea/Vomiting Psyllium Hydrophilic Mucilloid (Metamucil) 1 packet PO DAILY PRN PRN PRN Reason: Constipation Last Admin: 01/04/19 07:45 Dose: 1 packet Documented by: Jarrod (Senokot) 1 tablet PO QHS PRN PRN PRN Reason: Constipation Sodium Chloride () 10 - 40 ml IV UD PRN PRN Reason: SALINE FLUSH Last Admin: 01/04/19 06:44 Dose: 30 ml Documented by: Sodium Chloride () 10 - 40 ml IV UD PRN PRN Reason: Midline Flush Home Medications: Ambulatory Orders Medication Instructions Recorded Cyanocobalamin (Vitamin B-12) 1,000 mcg PO DAILY 01/02/19 [Vitamin B-12] Gabapentin [Neurontin] 100 mg PO QHS 01/02/19 Levothyroxine Sodium 125 mcg PO DAILY 01/02/19 Lisinopril 40 mg PO DAILY 01/02/19 Loratadine 10 mg PO DAILY 01/02/19 Omeprazole 40 mg PO DAILY 01/02/19 Surgical History: - - Cholecystectomy, Esophageal stricture dilation/foreign body removal. Smoking Status: Never smoker - *Family History Maternal History Items: Diabetes Paternal History Items: No pertinent history Review of Systems Comment: Constitutional: Reports: Weakness. HEENT: Denies: Head Aches, Sinus Congestion, Sinus Drainage. Cardiovascular: Denies: Chest Pain, Orthopnea, Palpitations, Paroxysmal Noc. Dyspnea. Respiratory: Denies: Cough, Shortness of breath at rest, Shortness of breath upon exertion, Sputum production. Gastrointestinal: Denies: Abdominal Pain, Hematemesis, Hematochezia, Nausea, Melena, Vomiting. Musculoskeletal: Reports: Arm Pain, Joint stiffness. Neurological: Reports: Numbness. Psychiatric: Denies: Homicidal Ideations, Suicidal Ideations. Hematologic/ Lymphatic: Denies: Easy Bruising, Easy Bleeding Patient Problems: Active and Suspected Problems History of fasciotomy (Acute) Open wound of left forearm with complication (Acute) Pressure injury of upper extremity, stage 4 (Acute) Sepsis (Acute) Compartment syndrome of left upper extremity (Acute) SAVANNAH (acute kidney injury) (Acute) Rhabdomyolysis (Acute) Fall (Acute) - Physical Exam GENERAL: cooperative HEENT: PERRL. EOMI. NECK; supple, nontender. No cervical adenopathy. RESPIRATORY: Diminished to auscultation CARDIOVASCULAR: Regular S1 S2, GI: soft, nondistended. EXTREMITIES: Left upper extremity swelling more pronounced at the hand with extensive blistering and excoriations involving the entire extremity extending onto the axilla. No axillary adenopathy. There is a volar forearm wound from a recent fasciotomy and a VAC. Has firmness in the arm. Less firmness in the forearm since the fasciotomy. No evidence of infection yet but he is at increased risk. NEURO: CN II - XII grossly intact. Vital Signs Temp Pulse Resp BP Pulse Ox 98.7 F 109 H 20 H 119/76 100 01/05/19 23:00 01/05/19 23:00 01/05/19 23:00 01/05/19 23:00 01/05/19 23:00 Oxygen Flow Rate (L/min) 3 Oxygen Delivery Method Room Air Weight: 256 lb 9.889 oz Body Mass Index (BMI) 30.7 Intake and Output for Last 24 Hours 01/03/19 01/04/19 01/05/19 23:59 23:59 23:59 Intake Total 5080.6 / 5080.6 470 / 788.3 2781.3 / 2781.3 Output Total 140 / 140 125 / 155 315 / 315 Balance 4940.6 / 4940.6 345 / 633.3 2466.3 / 2466.3 Microbiology Past 72 Hours 01/03/19 12:55 Blood Culture - Preliminary Blood Culture (Wb) - No Site/Description Given No growth in 48 hours. 01/03/19 12:35 Blood Culture - Preliminary Blood Culture (Wb) - Arm Right No growth in 48 hours. 01/03/19 17:34 Urine Culture - Final Urine Catheter - Spencer Escherichia coli Laboratory Tests Past 24 Hrs 01/04/19 01/05/19 01/05/19 18:10 05:57 05:57 WBC 11.7 H RBC 3.62 L Hgb 12.1 L Hct 35.7 L MCV 98.6 H MCH 33.4 H MCHC 33.9 RDW Std Deviation 43.5 RDW Coeff of Carmita 11.9 Plt Count 187 MPV 11.3 Immature Gran % (Auto) 0.900 Neut % (Auto) 78.6 H Lymph % (Auto) 9.6 L [place] % (Auto) 10.5 H Eos % (Auto) 0.3 Baso % (Auto) 0.1 Absolute Neuts (auto) 9.2 H Absolute Lymphs (auto) 1.13 Nucleated RBC % 0 PT INR APTT Sodium 137 Potassium 4.7 Chloride 104 Carbon Dioxide 20.0 L Anion Gap 13 BUN 57 H Creatinine 5.53 H Estim Creat Clear Calc 12.44 Est GFR (MDRD) Af Amer 13 L Est GFR (MDRD) Non-Af 11 L BUN/Creatinine Ratio 10.3 Glucose 112 H Calcium 7.8 L Magnesium 2.5 Total Bilirubin 0.50 Direct Bilirubin 0.26 AST 218 H ALT 23 Alkaline Phosphatase 110 Total Creatine Kinase 3137 H Total Protein 5.5 L Albumin 1.6 L Globulin 3.9 Hep Bs Antigen Non-Reactive 01/05/19 05:57 WBC RBC Hgb Hct MCV MCH MCHC RDW Std Deviation RDW Coeff of Carmita Plt Count MPV Immature Gran % (Auto) Neut % (Auto) Lymph % (Auto) [place] % (Auto) Eos % (Auto) Baso % (Auto) Absolute Neuts (auto) Absolute Lymphs (auto) Nucleated RBC % PT 15.4 H INR 1.2 APTT 33.5 Sodium Potassium Chloride Carbon Dioxide Anion Gap BUN Creatinine Estim Creat Clear Calc Est GFR (MDRD) Af Amer Est GFR (MDRD) Non-Af BUN/Creatinine Ratio Glucose Calcium Magnesium Total Bilirubin Direct Bilirubin AST ALT Alkaline Phosphatase Total Creatine Kinase Total Protein Albumin Globulin Hep Bs Antigen Assessment/Plan All Active Problems History of fasciotomy (Acute) Open wound of left forearm with complication (Acute) Pressure injury of upper extremity, stage 4 (Acute) Sepsis (Acute) Compartment syndrome of left upper extremity (Acute) SAVANNAH (acute kidney injury) (Acute) Rhabdomyolysis (Acute) Fall (Acute) 1. Pressure injury left upper extremity with muscle damage from a fall at home. 2. Compartment syndrome left upper extremity. 3. Acute kidney injury requiring dialysis. 4. Acute rhabdomyolysis. 5. Sepsis. 6. Fasciotomy wound left volar forearm. Forearm and hand x-rays reviewed. Patient has complex acute medical problems stemming from a severe pressure injury left upper extremity. He has severe blistering involving the whole extremity with swelling and firmness. He had recent fasciotomy for a compartment syndrome. The severity of this pressure injury has caused acute rhabdomyolysis and acute kidney injury requiring dialysis. He is at increased risk for continued soft tissue necrosis and repeated debridements that may include muscle debridement. Continue IV antibiotics with Zosyn. The fasciotomy wound can be skin grafted in the future but is the least of his problems at the present time. His severe blistering of his left upper extremity is concerning for at least a partial thickness burn like injury or even areas of full thickness injury. Since it involves the entire extremity, he needs to be transferred to a tertiary Burn Center for eventual operative debridement and skin grafting. The postop care needed for such an extensive skin graft would be best done at a tertiary Burn Center. He is also at high risk for a nonfunctional or severely dysfunctional upper extr emity with muscle scarring and nerve damage from the pressure injury. He will need extensive OT and extensive rehab to try and salvage any function that he may have left. Also any complex reconstructive procedures that may be available to him in the future which is dependent on the residual status of his function at the time of the evaluation would be done at a tertiary center such as microvascular free tissue transfer. Also depending on the severity of continued tissue damage that would need require further debridements, he may end up with a nonviable extremity that would result in an upper extremity amputation. Once again, the amputation, if necessary, should be done at a tertiary center. Code Visit Inpatient E&M: 55210 Init Hosp L2 - ICD-10 - L89.894, W19.xxxA, T79.A12A, N17.9, M62.82, A41.9, S51.802A, Z98.890
[2019-01-06] VITALS (9 sets, daily range): BP systolic 114–136; BP diastolic 53–63; PULSE 107–124; RESP 18–20; TEMP 36.3–36.6; O2SAT 94–98
[2019-01-06] MEDS: oxyCODONE 5 MG Tablet PO ×3 (04:39→13:00)
[2019-01-06] MEDS: Levothyroxine 125 MCG Tablet PO (04:39)
[2019-01-06 07:33] LABS: Anion Gap 11 (5-15); BUN 68 mg/dL (7-18); BUN/Creat Ratio 10.4 RATIO (10-20); Calcium,Total 7.9 mg/dL (8.5-10.1); Chloride 104 mmol/L (98-107); Creatinine, Serum 6.56 mg/dL (0.70-1.30); EST Glomerular Filtration Rate 9 mL/min (>60); Est Glom Filt Rate - Afr Amer 11 mL/min (>60); Estimated Creatinine Clearance 10.49 ml/min; Glucose 110 mg/dL (74-106); Potassium 4.8 mmol/L (3.5-5.1); Sodium Level 135 mmol/L (136-145)
[2019-01-06] MEDS: Loratadine 10 MG Tablet PO (09:03)
[2019-01-06] MEDS: Pantoprazole Sodium 40 MG Tablet PO (09:03)
[2019-01-06] MEDS: Heparin Injection (Vial) 5,000 UNIT/ML VIAL 5000 UNIT SC (09:04)
[2019-01-06] MEDS: Multivitamins,Therapeutic Tablet 1 TABLET PO (09:04)
[2019-01-06] MEDS: Cyanocobalamin 500 MCG Tablet 1000 MCG PO (09:06)
[2019-01-06 09:13] LABS: Albumin, Serum 1.5 g/dL (3.2-5.0); Protein, Total 5.5 g/dL (6.4-8.2)
[2019-01-06 09:14] LABS: AST(SGOT) 158 U/L (15-37); Alanine Aminotransfer ALT/SGPT 21 U/L (16-61); Alkaline Phosphatase 118 U/L (45-117); Bilirubin, Direct 0.33 mg/dL (0.00-0.30); CPK Total, Creatine Kinase 1768 U/L (39-308); Magnesium 2.3 mg/dL (1.6-2.6)
--- NOTE | 2019-01-06 12:42 | DIALYSIS ---
HD X 3.5 HOURS ON 3K BATH UF-1600ML TOLERATED TX WELL. VITALS STABLE THRU OUT. REPORT TO DEBORAH FRYE
--- NOTE | 2019-01-06 13:07 | NURSING ---
having spurts of hr 140-130 non-sustained silvia myers np informed will continue to monitor
--- NOTE | 2019-01-06 14:13 | DS.PCM_ITS ---
<Janki Garrido - Last Filed: 01/06/19 14:30> Discharge Date and Diagnosis Date of Admission: 01/02/19 Date of Discharge: 01/06/19 - Primary Discharge Diagnosis Active and Suspected Problems 1. Acute traumatic rhabdomyolysis secondary to prolonged immobilization as a result of mechanical fall at home, prior to admission 2. Left upper extremity compartment syndrome secondary to #1 status post fasciotomy and secondary closure 3. Acute kidney injury secondary to #1 4. New onset atrial fibrillation 5. Acute E. coli cystitis 6. Elevated troponin, demand ischemia as result of #1 as well as new onset atrial fibrillation 7. Hypertension 8. History of alcohol use 9. Hypothyroidism 10. GERD 11. Obesity - Secondary Discharge Diagnosis Chronic Problems Hypertension (Chronic) Esophageal stricture (Chronic) GERD (gastroesophageal reflux disease) (Chronic) Osteoarthritis (Chronic) Hypothyroid (Chronic) Hyperlipidemia (Chronic) Hospital Course and Treatment Imaging Results: Diagnostic Data Brain CT 01/02/19 11:26 IMPRESSION: Chronic involutional changes of the brain. Electronically Signed: Marcos Madrid MD at 12:22 EDT , Service support , Cervical Spine CT 01/02/19 11:27 IMPRESSION: Multilevel degenerative changes, as described above. Findings most pronounced at C3-4. No fracture or suspicious osseous lesion Electronically Signed: Marcos Madrid MD at 12:23 EDT , Service support , Forearm X-Ray 01/02/19 11:27 IMPRESSION: Normal x-ray examination of the radius and ulna. Electronically Signed: Marcos Madrid MD at 12:44 EDT , Service support , Hand X-Ray 01/02/19 11:27 IMPRESSION: Demineralization of the osseous structures with polyarticular arthrosis, most notably at the base of the thumb. No demonstrated fracture or suspicious osseous lesion Electronically Signed: Marcos Mardid MD at 12:43 EDT , Service support , Renal Ultrasound 01/04/19 12:09 IMPRESSION: Normal ultrasound of the kidneys. Nondistended urinary bladder. Electronically Signed: Juancarlos Henriquez DO at 21:33 EDT Tel [phone], Service support , Chest X-Ray 01/04/19 14:12 IMPRESSION: The tip of the temporary right sided dialysis catheter is at the junction of the superior vena cava and right atrium. The remainder of the examination is unchanged. Electronically Signed: Vijay Brooke, at 15:09 EDT , Service support , Consultations 01/02/19 14:23 Consult: Onc/Wound/anesthesia attending Routine Comment: 01/05/19 12:21 Consult: Onc/Wound/anesthesia attending Routine Comment: Reason for Consult:: wound vac left arm Comments:: skin care Dr. Smith-pediatric critical care nurse Dr. Juarez-plastic surgery Dr. Foy- Nephrology Dr. Archer-ortho Operations: - - Fasciotomy, secondary wound closure Procedures: 2-D Echocardiogram Summary of Care Provided: The patient is a 78 year old M admitted 01/02/2019 due to fall at home where patient was stuck in between the wall in his bed for over 12 hours. 1. Acute traumatic rhabdomyolysis secondary to prolonged immobilization as a result of mechanical fall at home, prior to admission-CK on admission greater than 22,000. CK at discharge 1700. 2. Left upper extremity compartment syndrome secondary to #1 status post fasciotomy and secondary closure- ortho and plastic surgery following during admission. Patient underwent fasciotomy on 01/02/2019. He further underwent secondary closure 01/05/19. Due to severe blistering of the left upper extremity, transfer was recommended to tertiary burn center for skin grafting and possible further operative debridement. Patient was treated with IV Zosyn during admission. Patient transferred to [facility] for further wound care and evaluation. 3. Acute kidney injury secondary to #1-requiring initiation of dialysis. Temporary dialysis catheter placed 01/04/2018 and patient received dialysis x2 during admission. 4. New onset atrial fibrillation-rate controlled. Echocardiogram completed which showed an EF of 75%, RVSP estimated to be 30 mmHg, mild aortic stenosis. 5. Acute E. coli cystitis-IV Zosyn during admission. 6. Elevated troponin, demand ischemia as result of #1 as well as new onset atrial fibrillation 7. Hypertension-stable, lisinopril held due to declining renal function. 8. History of alcohol use 9. Hypothyroidism-continue Synthroid regimen. 10. GERD-continue PPI. 11. Obesity-nutrition consult. Patient seen and examined prior to discharge. Physical assessment as noted below. Patient stable at time of transfer to [facility]. This patient was seen by NAEL Rich under the supervision of Dr. Jonas. - Physical Exam General: Alert, Oriented x3, Cooperative HEENT: Atraumatic, PERRLA, EOMI, Normocephalic Oral: Dry Mucosa Neck: Supple, No JVD, Negative Carotid Bruits Lungs: Clear to auscultation, Diminished Cardiovascular: - - Atrial fibrillation, rate controlled Abdomen: Bowel Sounds Present, Soft, Non Tender, Non-Distended, Obese Extremities: No clubbing, No cyanosis, Capillary Refill Less than 3 Seconds, Edema - Bilateral upper and lower extremities. Skin: - - Left lower extremity Max wrap in place without drainage. Multiple areas of ecchymosis. Musculoskeletal: No Tenderness to Palpation of Joints or Extremities Neurological: Cranial nerves II-XII grossly intact, Neuro grossly intact Psych/Mental Status: Normal Affect, Appropriate Vital Signs Temp Pulse Resp BP Pulse Ox 97.8 F 117 H 18 119/54 L 97 01/06/19 13:11 01/06/19 13:11 01/06/19 13:11 01/06/19 13:11 01/06/19 13:11 Oxygen Flow Rate (L/min) 3 Oxygen Delivery Method Room Air Weight: 246 lb 11.156 oz Body Mass Index (BMI) 30.7 Intake and Output for Last 24 Hours 01/04/19 01/05/19 01/06/19 23:59 23:59 23:59 Intake Total 470 / 788.3 2781.3 / 2781.3 633 / 633 Output Total 125 / 155 315 / 315 1900 / 1900 Balance 345 / 633.3 2466.3 / 2466.3 -1267 / -1267 Microbiology Past 72 Hours 01/03/19 12:55 Blood Culture - Preliminary Blood Culture (Wb) - No Site/Description Given No growth in 48 hours. 01/03/19 12:35 Blood Culture - Preliminary Blood Culture (Wb) - Arm Right No growth in 48 hours. 01/03/19 17:34 Urine Culture - Final Urine Catheter - Spencer Escherichia coli Laboratory Tests Past 24 Hrs 01/06/19 01/06/19 06:18 06:18 Sodium 135 L Potassium 4.8 Chloride 104 Carbon Dioxide 20.0 L Anion Gap 11 BUN 68 H Creatinine 6.56 H Estim Creat Clear Calc 10.49 Est GFR (MDRD) Af Amer 11 L Est GFR (MDRD) Non-Af 9 L BUN/Creatinine Ratio 10.4 Glucose 110 H Calcium 7.9 L Magnesium 2.3 Total Bilirubin 0.50 Direct Bilirubin 0.33 H AST 158 H ALT 21 Alkaline Phosphatase 118 H Total Creatine Kinase 1768 H Total Protein 5.5 L Albumin 1.5 L Globulin 4.0 Home Medications: Medications to take at Discharge Cyanocobalamin (Vitamin B-12) [Vitamin B-12] 1,000 mcg PO DAILY 01/02/19 Gabapentin [Neurontin] 100 mg PO QHS 01/02/19 Levothyroxine Sodium 125 mcg PO DAILY 01/02/19 Lisinopril 40 mg PO DAILY 01/02/19 Loratadine 10 mg PO DAILY 01/02/19 Omeprazole 40 mg PO DAILY 01/02/19 Primary Care Physician: Ekta Mc,Out of [NON-STAFF] - Disposition: Acute care Hospital Minutes spent on discharge:: 40 Patient Condition:: Fair Medical Necessity - Tobacco Use Smoking Status: Never smoker Meaningful Use Info Meaningful Use Diagnoses (Choose all that apply): None applicable <Ricardo Jonas - Last Filed: 01/06/19 14:58> Discharge Date and Diagnosis - Secondary Discharge Diagnosis Chronic Problems Hypertension (Chronic) Esophageal stricture (Chronic) GERD (gastroesophageal reflux disease) (Chronic) Osteoarthritis (Chronic) Hypothyroid (Chronic) Hyperlipidemia (Chronic) Hospital Course and Treatment Consultations 01/02/19 14:23 Consult: Onc/Wound/anesthesia attending Routine Comment: 01/05/19 12:21 Consult: Onc/Wound/anesthesia attending Routine Comment: Reason for Consult:: wound vac left arm Comments:: skin care Summary of Care Provided: TThis patient was seen in conjunction with NAEL Rich . I have independently interviewed and examined the patient and reviewed pertinent historical, laboratory, and other data. Please refer to NAEL Rich note for details of this patient's presentation, findings, and recommendations. I have reviewed NAEL Rich note and concur with documented findings. Patient is a 78-year-old gentleman who was admitted following a crush injury between his bed and wall with prolonged immobilization of 12 hours duration brought to the emergency department patient was found to have acute rhabdomyolysis with acute kidney injury. He was subsequently determined to have compartment syndrome consult was placed to orthopedic surgery seen by Dr. Archer who did take patient to OR for fasciotomy 1. Acute mechanical fall with significantly left upper extremity swelling consistent with compartment syndrome. Consult was placed orthopedic surgery patient underwent fasciotomy on 01/02/2019. 2. Acute rhabdomyolysis following prolonged episodes of immobilization 3. Acute kidney injury secondary to Acute rhabdomyolysis ;The patient had temporary dialysis catheter placed on 01/04/2019 with initiation of dialysis 4. New onset atrial fibrillation rate relatively controlled do suspect this to be related to patient chronic alcohol use 5. Acute cystitis with E. coli 6. Hypertension patient is on lisinopril which was held in view of his impaired kidney function 7. Elevated troponin do suspect probable demand ischemia from patient acute kidney injury 2D echo ordered for EF assessment. Recent echo demonstrated ejection fraction of 75% with no regional wall motion of normalities 8. History of occasional alcohol use patient was placed on alcohol withdrawal medical stabilization protocol 9. Hypothyroidism-patient is on levothyroxine home dose continued 10. GERD on PPI 11. Obesity with BMI of 31.5 Hospital course: As documented above by Janki Garrido NP?C - Physical Exam Vital Signs Temp Pulse Resp BP Pulse Ox 97.8 F 117 H 18 119/54 L 97 01/06/19 13:11 01/06/19 13:11 01/06/19 13:11 01/06/19 13:11 01/06/19 13:11 Oxygen Flow Rate (L/min) 3 Oxygen Delivery Method Room Air Weight: 111.9 kg Body Mass Index (BMI) 30.7 Intake and Output for Last 24 Hours 01/04/19 01/05/19 01/06/19 23:59 23:59 23:59 Intake Total 470 / 788.3 2781.3 / 2781.3 633 / 633 Output Total 125 / 155 315 / 315 1900 / 1900 Balance 345 / 633.3 2466.3 / 2466.3 -1267 / -1267 Microbiology Past 72 Hours 01/03/19 12:55 Blood Culture - Preliminary Blood Culture (Wb) - No Site/Description Given No growth in 48 hours. 01/03/19 12:35 Blood Culture - Preliminary Blood Culture (Wb) - Arm Right No growth in 48 hours. 01/03/19 17:34 Urine Culture - Final Urine Catheter - Spencer Escherichia coli Laboratory Tests Past 24 Hrs 01/06/19 01/06/19 06:18 06:18 Sodium 135 L Potassium 4.8 Chloride 104 Carbon Dioxide 20.0 L Anion Gap 11 BUN 68 H Creatinine 6.56 H Estim Creat Clear Calc 10.49 Est GFR (MDRD) Af Amer 11 L Est GFR (MDRD) Non-Af 9 L BUN/Creatinine Ratio 10.4 Glucose 110 H Calcium 7.9 L Magnesium 2.3 Total Bilirubin 0.50 Direct Bilirubin 0.33 H AST 158 H ALT 21 Alkaline Phosphatase 118 H Total Creatine Kinase 1768 H Total Protein 5.5 L Albumin 1.5 L Globulin 4.0 Code Visit Inpatient E&M: 09917 Disch Hosp
--- NOTE | 2019-01-06 14:44 | NURSING ---
report called to [facility] for transfer to [facility] [address], here and informed of transfer plans
--- NOTE | 2019-01-06 15:54 | NURSING ---
consent for transfer to [facility] signed by directions given to facility
[2019-01-08 08:23] LABS: Hepatitis B Core Ab Total Negative (Negative)
== END 2019-01-06 16:15 | disposition short-term general hospital (02) | DRG 908 ==
LOC: ED 11:35 → PCU 13:54 → ICU 18:07 → PCU 01-03 14:09
PROVIDERS: Anesthesiology; Internal Medicine; Internal Medicine Critical Care Medicine; Nurse Practitioner Family; Orthopaedic Surgery; Admitting Provider Internal Medicine; Emergency Provider Emergency Medicine; Referring Provider Internal Medicine; Visit Provider Internal Medicine
PROC: 0KNB0ZZ Release Left Lower Arm and Wrist Muscle, Open Approach (ICD-10-PCS; principal; 2019-01-02 16:25)
PROC: 0JDH0ZZ Extraction of Left Lower Arm Subcutaneous Tissue and Fascia, Open Approach (ICD-10-PCS; principal; 2019-01-05 10:45)
DX: T79.A12A Traumatic compartment syndrome of left upper extremity, initial encounter (principal); N17.9 Acute kidney failure, unspecified; N30.00 Acute cystitis without hematuria; I24.8 Other forms of acute ischemic heart disease; T79.6XXA Traumatic ischemia of muscle, initial encounter; E03.9 Hypothyroidism, unspecified; Z68.31 Body mass index [BMI] 31.0-31.9, adult; E66.9 Obesity, unspecified; I10 Essential (primary) hypertension; W18.39XA Other fall on same level, initial encounter; W23.1XXA Caught, crushed, jammed, or pinched between stationary objects, initial encounter; Y93.89 Activity, other specified; Y92.013 Bedroom of single-family (private) house as the place of occurrence of the external cause; I48.91 Unspecified atrial fibrillation; B96.20 Unspecified Escherichia coli [E. coli] as the cause of diseases classified elsewhere; K21.9 Gastro-esophageal reflux disease without esophagitis; M19.90 Unspecified osteoarthritis, unspecified site; E78.5 Hyperlipidemia, unspecified; Z72.89 Other problems related to lifestyle
CPT/HCPCS: 36415; 70450; 71045; 72125; 73090; 73130; 76770; 80048; 80053; 80074; 80076; 80320; 80329; 81001; 82550; 82962; 83605; 83735; 84450; 84460; 84484; 85025; 85610; 85730; 86704; 86706; 87040; 87077; 87086; 87088; 87186; 87340; 87641; 90715; 90937; 93005; 93306; 93971; 97163; 97166; 97530; 97802; 99251; 99285; J7030; J7040; J7050; J7120; Q9957; A4216; C1752; C8929; G0257; G0463; G0480; J0330; J1940; J2405; J3475